=== PATIENT | female | born 1980 | race Hispanic/Latino ===

== ENCOUNTER 2020-11-16 15:27 | Emergency (ER) | payer OTHER ==
--- OUTSIDE RECORDS SUMMARY | 2020-11-16 15:32 | XMS REPORT | Continuity of Care Document ---
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 Rickey VIDAL [facility] Obstetrics [id number] Univers 14:00:00 14:00:00 t; ANUSHA and catracho VIDAL M.D. Gynecology Dante s Noni TAVARES M.D. Clinic ans 2020-04-29 2020-04-29 [facility] [id number] Univers 13:15:00 13:15:00 t; catracho TAVARES M.D. [place] Tom TAVRAES M.D. ans 2020-04-21 2020-04-21 [facility] Endocrinolo [id number] Univers 08:40:00 08:40:00 t; PAT [facility] i ty of [facility] Physic i [facility] ans 2020-04-05 2020-04-05 Appointradha MILLER [facility] Rheumatolog [id number] Univers 08:00:00 08:00:00 t; KANA MILLER M.D. y i ty of Liza ROGER [place] Physici ans 2020 [address] [facility] Minimally [id number] Univers 13:00:00 13:00:00 t; JD CALVIN Invasive ity of CURTIS, M.D. Surgeons of Dante hood M.D. [place] Physici ([facility]) ans 2020 2020 [facility] [id number] Univers 09:00:00 09:00:00 t; JD CALVIN ity o f CURTIS, M.D. [place] M.D. Physici ans 2020-02-29 2020-02-29 [facility] IRAM [facility] Multispecia [id number] Univers 15:00:00 15:00:00 t; JOCELYN WALDEN lty - it y of LAVANYA, M.D. [place] M.D. Physici ans 2020-01-29 2020-01-29 [facility] [id number] Univers 14:00:00 14:00:00 t; NURSE hayden of [place], [place] NURSE Physici ans 2020-01-21 2020-01-21 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 [facility] Women's [id number] Univers 10:00:00 10:00:00 t; COMFORT, Center - ity of Liza VIDAL [facility] COMFORT Physici Liza ans 2019-12-29 2019-12-29 Appointmen MARIXA [facility] [id number] Univers 14:00:00 14:00:00 t; JD CALVIN ity o janelle MILES M.D. [place] Liza Physici ans 2019-12-29 2019-12-29 Appointmen MARIXA [facility] [id number] Univers 10:30:00 10:30:00 t; JD CALVIN, Invasive ity of Liza MILES [facility] Liza [place] Physici ([facility]) ans 2019-12-14 2019-12-14 Appointmen C[facility]CHAN [facility] [id number] Univers 09:15:00 09:15:00 t; ANTONY SABA M.D. ity of Jayne HARDY M.D. Physici ans 2019-12-10 2019-12-10 Emergency E MHBL MHBL [id number] MHBL 18:31:00 18:31:00 2019-12-10 2019-12-[address] 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 2019-12-04 2019-12-04 Emergency Drever, [facility] [id number] 10:09:57 12:14:00 Madhuri Crawfodr 350.1.13.10 [place] 4.2.7.2.686 [place] [id number] 2019-12-04 2019-12-04 Orders Doctor SYLVIA [id number] 00:00:00 00:00:00 Only Unassigned, NOA 350.1.13.[address]2.686 [id number] 2019-11-27 2019-11-27 Outpatient MHBL MHBL [id number] MHBL 10:54:00 10:54:00 2019-11-12 2019-11-13 Emergency Aliza, [facility] [id number] 21:40:46 01:33:00 Delon Crawford 350.1.13.[address]7.2.686 [place] [id number] [id number] 2019-11-12 2019-11-12 Orders Doctor WARD [id number] 00:00:00 00:00:00 Only Unassigned, NOA 350.1.13.[address]2.686 [id number] [id number] 2019-11-11 2019-11-11 Emergency E MHBL MHBL [id number] MHBL 15:43:00 15:43:00 2019-09-14 2019-09-14 Emergency E MHBL MHBL [id number] MHBL 15:17:00 15:17:00 2019-05-07 2019-05-07 Outpatient MHBL MINAL [id number] MHBL 05:39:00 05:39:00 2013-11-17 2013-11-17 Outpatient Gutierrez Christenseni [facility] [id number] 18:07:00 23:59:00 [facility] 2013-11-17 2013-11-17 Outpatient Fermin Linda [facility] [id number] 18:07:00 23:59:00 [facility] 2013-10-09 2013-10-09 Outpatient 3 3 [id number] 15:16:22 15:16:21 2013-10-09 2013-10-09 Outpatient 3 3 [id number] 15:16:22 15:16:21 Results Test Description Test Time Test Comments Results Result Comments Source [Q] HEPATITIS PANEL, ACUTE W/REFLEX 2020-05-04 07:27:00 Test Item Value Reference Range Interpretation Comme nts HEPATITIS NON-REACTIVE NON-REACTIVE N For additional information, please refer to A IGM http://educatio n.WeGush.im3D/faq/PSF994 (test code (This link is b eing provided for = informational/e ducational purposes only.) HEPATITIS A IGM) HEPATITIS NON-REACTIVE NON-REACTIVE N B SURFACE ANTIGEN; Normal (test code = 5195-3) HEPATITIS NON-REACTIVE NON-REACTIVE N B CORE ANTIBODY (IGM); Normal (test code = 93097-8) HEPATITIS NON-REACTIVE NON-REACTIVE N C ANTIBODY; Normal (test code = 96160-1) SIGNAL TO 0.02 <1.00 N HCV antibody wa s non-reactive. There is no CUT-OFF laboratory evid ence of HCV infection. In most (test code cases, no furth er action is required. However,if = SIGNAL recent HCV expo sure is suspected, a test for HCV TO RNA(test code 3 5645) is suggested. For additional CUT-OFF) information ple ase refer tohttp://educat ion.WeGush.im3D/faq/FAQ22 v1(This link is being provided for informational/e ducational purposes only.) [facility][QL] CMP [id number] 07:27:00 Test Item Value Reference Range Interpretation Comments GLUCOSE; Above 294 mg/dl 65-99 Fasting refer ence High Threshold interval For (test code = someone without 1547-9) known diabetes, a glucosevalue >1 25 mg/dL indicates that they may havediabetes an d this should be confirmed with afollow-up test . UREA NITROGEN 9 mg/dl 7-25 N (BUN) (test code = UREA NITROGEN (BUN)) CREATININE (test 0.77 mg/dl 0.50-1.10 N code = CREATININE) eGFR NON-AFR. 97 {ML/MIN/1.7} > OR = 60 N ISRAELI (test code = eGFR NON-AFR. ISRAELI) eGFR 113 {ML/MIN/1.7} > OR = 60 N ISRAELI (test code = eGFR ) BUN/CREATININE NOT APPLICABLE 6-22 RATIO (test code = BUN/CREATININE RATIO) SODIUM (test code 137 mmol/L 135-146 N = SODIUM) POTASSIUM (test 4.6 mmol/L 3.5-5.3 N code = POTASSIUM) CHLORIDE (test 99 mmol/L 98-110 N code = CHLORIDE) CARBON DIOXIDE 26 mmol/L 20-32 N (test code = CARBON DIOXIDE) CALCIUM (test code 9.9 mg/dl 8.6-10.2 N = CALCIUM) PROTEIN, TOTAL 7.4 g/dl 6.1-8.1 N (test code = PROTEIN, TOTAL) ALBUMIN (test code 4.1 g/dl 3.6-5.1 N = ALBUMIN) GLOBULIN (test 3.3 {G/DL CALC} 1.9-3.7 N code = GLOBULIN) ALBUMIN/GLOBULIN 1.2 {CALC} 1.0-2.5 N RATIO (test code = ALBUMIN/GLOBULIN RATIO) BILIRUBIN, TOTAL; 0.4 mg/dl 0.2-1.2 N Normal (test code = 80627-8) ALKALINE 178 u/l 31-125 PHOSPHATASE (test code = ALKALINE PHOSPHATASE) AST; Above High 45 u/l 10-30 Threshold (test code = 1916-6) ALT; Above High 49 u/l 6-29 Threshold (test code = 1742-6) [facility][QL] SED RATE BY MODIFIED [id number] 07:27:00 Test Item Value Reference Range Interpretation Comments SED RATE BY TNP TEST NOT PERFOR MED Please be MODIFIED ALISON advised that we receivedyour (test code = SED order for t est code 809 - RATE BY MODIFIED ESR,Automat ed. Due to ALISON) insufficientspe cimen volume the automated E SRwas not performed. The test code waschanged to 2 9891 and a manual ESRwas p erformed. Billing has bee nchanged as appropriate. Pl easecontact us with any questi ons. [facility][QL] CBC (INCLUDES DIFF/PLT)2020-05-04 07:27:00 Test Item Value Reference Range Interpretation Comments WHITE BLOOD CELL COUNT 10.2 {Thousand/u} 3.8-10.8 N (test code = WHITE BLOOD CELL COUNT) RED BLOOD CELL COUNT (test 5.44 {Million/uL} 3.80-5.10 code = RED BLOOD CELL COUNT) HEMOGLOBIN; Normal (test 15.0 g/dl 11.7-15.5 N code = 10945-6) HEMATOCRIT; Above High 46.5 % 35.0-45.0 Threshold (test code = 4544-3) MCV; Normal (test code = 85.5 fL 80.0-100.0 N 787-2) MCHC; Normal (test code = 32.3 g/dl 32.0-36.0 N 21529-3) RDW; Normal (test code = 13.7 % 11.0-15.0 N 788-0) PLATELET COUNT; Normal 366 {Thousand/u} 140-400 N (test code = 777-3) MPV; Normal (test code = 10.9 fL 7.5-12.5 N 75523-4) ABSOLUTE NEUTROPHILS (test 4570 {cells/uL} 9294-2908 N code = ABSOLUTE NEUTROPHILS) ABSOLUTE LYMPHOCYTES (test 4927 {cells/uL} 850-3900 code = ABSOLUTE LYMPHOCYTES) ABSOLUTE MONOCYTES (test 428 {cells/uL} 200-950 N code = ABSOLUTE MONOCYTES) ABSOLUTE EOSINOPHILS (test 214 {cells/uL} 15-500 N code = ABSOLUTE EOSINOPHILS) ABSOLUTE BASOPHILS (test 61 {cells/uL} 0-200 N code = ABSOLUTE BASOPHILS) NEUTROPHILS (test code = 44.8 % N NEUTROPHILS) LYMPHOCYTES (test code = 48.3 % N LYMPHOCYTES) MONOCYTES; Normal (test 4.2 % N code = 30976-6) EOSINOPHILS; Normal (test 2.1 % N code = 17219-6) BASOPHILS; Normal (test 0.6 % N code = 67128-7) [facility][Q] SED RATE BY MODIFIED WESTERGREN, MANUAL 2020-05-04 07:27:00 Test Item Value Reference Range Interpretation Comments SED RATE BY MODIFIED WESTERGREN, 35 mm/h < OR = 20 MANUAL (test code = SED RATE BY MODIFIED WESTERGREN, MANUAL) [facility][QL] C-REACTIVE [id number] 07:27:00 Test Item Value Reference Range Interpretation Comments C-REACTIVE PROTEIN (test code = 31.3 mg/L <8.0 C-REACTIVE PROTEIN) [facility][Q] QUANTIFERON( R)-TB GOLD PLUS, 1 [id number] 07:27:00 Test Item Value Reference Range Interpretation Comments QUANTIFERON( NEGATIVE NEGATIVE N Negative test r esult. M. R)-TB GOLD tuberculosis co mplex PLUS, 1 TUBE infection unlik jazlyn. (test code = QUANTIFERON( R)-TB GOLD PLUS, 1 TUBE) NIL (test code 0.07 {IU/ml} N = NIL) MITOGEN-NIL >10.00 N (test code = MITOGEN-NIL) TB1-NIL (test 0.00 {IU/ml} N code = TB1-NIL) TB2-NIL (test 0.01 {IU/ml} N The Nil tube v alue reflects code = the background TB2-NIL) interferongamma immune response of the patient's blood sample.Th is value has been subtracted from the patient'sdispla yed TB and Mitogen results . Lower than expected result s with the Mitogen tubepre vent false-negative Quantiferon readings bydete cting a patient with a potential immunesuppressi ve condition and/or suboptim al pre-analyticals pecimen handling. The T B1 Antigen tube is coated with theM. tuberculosis-sp ecific antigens design ed to elicitresponses from TB antigen primed CD4+ helperT-lymphoc ytes. The TB2 Antigen tub e is coated with theM. tuberculosis-sp ecific antigens design ed to elicitresponses from TB antigen primed CD4+ helper and CD8+cytotox ic T-lymphocytes. For additional info rmation, please refer tohttps://educa tion.Vivint.im3D/f aq/VCL242(Th is link is joseph zhao provided for informational/e ducational purposes only.) [facility] Abdomen RUQ [id number] 10:16:00PROCEDURE INFORMATION:Exam: US Abdomen, Limited; Right Upper QuadrantExam date and time: 04/12/2020 10:23 AMAge: 40 years oldClinical indication: Nonspecific elevation of levels of transaminase and lacticacid dehydrogenase (ldh); Additional info: /transaminitisTECHNIQUE:Imaging protocol: US abdomen. Real time ultrasound with image documentation.Limited exam focused on the right upper quadrant.COMPARISO N:ABDOMEN RUQ US 08/06/2017 1:35 PMFINDINGS:Liver: The liver demonstrates minimal increased echogenicity suggesting fattyinfiltration. No masses. The main portal vein appears patent and demonstrateshepatopetal flow.Gallbladder: Previous cholecystectomy.Common bile duct: The common bile duct is slightly dilated and measures 7 mm.No stones.Pancreas: The visualized pancreas is unremarkable.Right kidney:The right kidney measures 13.6 cm. No mass. No hydronephrosis.IMPRESSION:1. Minimal fatty infiltration of the liver.2. 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 No joint spacenarrowing, osteophyte formation or cysts.No soft tissue abnormality is identified.IMPRESSION: Normal exam of the bilateral feet.--This report was dictated by a Barrel Finisher/Fellow/Physician Education Officer. Ihave personallyreviewed the images as well as the interpretation and agree with the findings.Read by: Haja Argueta MD Resident/Fellow/PhysicianAssistant: Haja Argueta MDDictated Date/time: 04/05/20 11:29Electronically Signed by: Chet Gee MD 04/05/2011:53FINAL REPORTUnBear [facility] PhysiciansXRAY Hand AP lateral oblique Bilateral [id number] 10:10:00EXAM: XR BILATERAL HAND 4 VIEWSDATE: 04/05/2020 10:11 CDTINDICATION: - M25.50 Pain in unspecified jointCOMPARISON: None.TECHNIQUE: PA, [place], lateral and oblique radiographs of the bilateralhands.FINDINGS:No acute fracture or malalignment is identified. No osseous erosions or cysts.Joint spaces and bone mineral density are preserved.No soft tissue abnormality is identified.IMPRESSION: Normal exam of the bilateral hands.--This report was dictated by a Barrel Finisher/Fellow/Physician Education Officer. Jose personallyreviewed the images as well as the interpretation and agree with the findings.Read by: Haja Argueta MD Resident/Fellow/PhysicianAssistant: Haja Argueta MDDictated Date/time: 04/05/20 11:34Electronically Signed by: Chet Gee MD 04/05/2011:55FINAL REPORTUnBear River [facility][QL] JODY PANEL, [id number] 09:10:00 Test Item Value Reference Range Interpretation Comments JODY SCREEN, IFA NEGATIVE NEGATIVE N JODY IFA is a first line (test code = JODY screen for detecting SCREEN, IFA) thepresence of up to approximately 1 50 autoantibodies invarious autoimmune dise ases. A negative JODY IF A resultsuggests an JODY-associated autoimmune disease is notp resent at this time, but is not definitive. If thereis high clinical suspic ion for Sjogren's syndr ome,testing for anti-SS-A/R o antibody should be considered.Anti -Rachel-1 antibody should be considered for clinicallysuspe cted inflammatory my opathies. AC-0: Negative International Consensus on AN A Patterns(https: //doi.org/10. 1515/cclm-2018- 0052) For additional info rmation, please refer tohttp://educat ion.Garpun.im3D/faq /NQQ857(This link is being p rovided for informational/e ducational purposes only.) DNA (DS) ANTIBODY <1 N IU/mL Interpretation (test code = DNA < or (DS) ANTIBODY) = 4 Negati ve 5- 9 Indeterminate > or = 10 Positive SCL-70 ANTIBODY <1.0 NEG <1.0 NEG N (test code = SCL-70 ANTIBODY) SM ANTIBODY (test <1.0 NEG <1.0 NEG N code = SM ANTIBODY) SM/ANIMAL PATHOLOGY TEACHER ANTIBODY <1.0 NEG <1.0 NEG N (test code = SM/ANIMAL PATHOLOGY TEACHER ANTIBODY) SJOGRENS ANTIBODY <1.0 NEG <1.0 NEG N (SS-A) (test code = SJOGRENS ANTIBODY (SS-A)) SJOGRENS ANTIBODY <1.0 NEG <1.0 NEG N (SS-B) (test code = SJOGRENS ANTIBODY (SS-B)) [facility][QL] CREATINE KINASE, [id number] 09:10:00 Test Item Value Reference Range Interpretation Comments CREATINE KINASE, TOTAL (test code = 91 u/l 29-143 N CREATINE KINASE, TOTAL) [facility][QL] URINALYSIS, COMPLETE W/REFLEX TO CULTURE 2020-04-05 09:10:00 Test Item Value Reference Range Interpretation Comments COLOR; Normal (test code = YELLOW YELLOW N 5778-6) APPEARANCE (test code = CLOUDY CLEAR A APPEARANCE) SPECIFIC GRAVITY; Normal 1.017 1.001-1.035 N (test code = 2965-2) PH; Normal (test code = < OR = 5.0 5.0-8.0 N 2756-5) GLUCOSE; Normal (test code NEGATIVE NEGATIVE N = 1547-9) BILIRUBIN; Normal (test NEGATIVE NEGATIVE N code = 10203-8) KETONES; Normal (test code NEGATIVE NEGATIVE N = 09915-5) OCCULT BLOOD; Normal (test NEGATIVE NEGATIVE N code = 72600-9) PROTEIN; Normal (test code NEGATIVE NEGATIVE N = 73575-0) NITRITE (test code = NEGATIVE NEGATIVE N NITRITE) LEUKOCYTE ESTERASE (test 1+ NEGATIVE A code = LEUKOCYTE ESTERASE) WBC; Abnormal (test code = 10-20 < OR = 5 A 6690-2) RBC; Normal (test code = NONE SEEN < OR = 2 N 789-8) SQUAMOUS EPITHELIAL CELLS; 20-27 < OR = 5 A Abnormal (test code = 85810-9) BACTERIA; Abnormal (test FEW NONE SEEN A code = 630-4) URIC ACID CRYSTALS; Normal FEW NONE OR FEW N (test code = 64334-1) HYALINE CAST; Abnormal 0-5 NONE SEEN A (test code = 09433-7) YEAST; Abnormal (test code FEW NONE SEEN A = 43805-7) COMMENTS (test code = FEW MUCOUS THREADS 33126-6) [facility][Q] CYCLIC CITRULLINATED PEPTIDE (CCP) AB (IGG) 2020-04-05 09:10:00 Test Item Value Reference Range Interpretation Comments CYCLIC CITRULLINATED <16 N Referen ce PEPTIDE (CCP) AB (IGG) Range Negative: (test code = CYCLIC <20We ak Positive: CITRULLINATED PEPTIDE 20 -39Moderate (CCP) AB (IGG)) Positive: 40-59Strong Pos itive: >59 [facility][Q] REFLEXIVE URINE [id number] 09:10:00 Test Item Value Reference Range Interpretation Comments REFLEXIVE URINE CULTURE CULTURE INDICATED - (test code = REFLEXIVE RESULTS TO FOLLOW URINE CULTURE) [facility][QL] CULTURE, URINE, [id number] 09:10:00 Test Item Value Reference Range Interpretation Comments CULTURE (test code See Comment A CULTURE, URINE, ROUTINE = CULTURE) Micro Number : [id number] Test Status: Final Spec imen Source: URINE Specimen Qualit y: Adequate Resul t: 10,000-50,0 00 CFU/mL of Group B Stre ptococcus isolated Beta-hemoly tic Streptococci ar e predictably suscepti ble to penicillin and other beta-lactams. Suscep tibility testing not rou tinely performed. Any amoun t of group B Strepto coccus in urine specimens obta ined from female s is a marker of genital trac t colonization. I f this patient is , pl ease refer to ACOG guidel lory for appropriate scr eening and management of p regnant women. Comment : Erythromycin and clindamycin are not recommended for lala tment of urinary tract infections, but clin damycin may be useful f or treatment of rectova ginal colonization or infection. Res ult: Three or more organisms prese nt, each greater than 10,000 CFU/mL. May represent n ormal rita contamination from external genita beata. No further testing is r equired. [facility][QL] CORTISOL, [id number] 08:10:00 Test Item Value Reference Range Interpretation Comments CORTISOL, TOTAL 0.8 {mcg/dl} Reference Ra nge: For 8 (test code = a.m.(7-9 a.m.) CORTISOL, TOTAL) Specimen: 4.0-22.0Referen ce Range: For 4 p. m.(3-5 p.m.) Specimen: 3.0-17.0 * Ple ase interpret above results accordingly * [facility][QL] CORTISOL, [id number] 08:42:00 Test Item Value Reference Range Interpretation Comments CORTISOL, TOTAL 15.6 {mcg/dl} N Reference R marko: For 8 (test code = a.m.(7-9 a.m.) CORTISOL, TOTAL) Specimen: 4.0-22.0Referen ce Range: For 4 p. m.(3-5 p.m.) Specimen: 3.0-17.0 * Ple ase interpret above results accordingly * [facility][QL] FSH AND [id number] 08:42:00 Test Item Value Reference Range Interpretation Comments FSH (test code 6.9 {miU/ml} N Reference Ran ge = FSH) Follicu lar Phase 2.5-10.2 Mid-cycle Peak 3.1-17.7 Luteal Phase 1.5- 9.1 Postmenopausal 23.0-116.3 LH (test code = 0.6 {miU/ml} N Reference Ra ngeFollicular LH) Phase 1.9-12.5 Mid-Cycle Peak 8.7-76. 3Luteal Phase 0.5-16.9Postmen opausal 10.0-54.7 [facility][QL] ACTH, [id number] 08:42:00 Test Item Value Reference Range Interpretation Comments ACTH, PLASMA (test 17 pg/ml 6-50 Reference range applies code = ACTH, only to the [facility] PLASMA) collectedbetwee n 7am-10am. [facility][Q] IGF I, [id number] 08:42:00 Test Item Value Reference Range Interpretation Comments IGF I, ECL 69 ng/ml 53-331 (test code = IGF I, ECL) Z SCORE -1.5 {SD} -2.0-+2.0 This test was d eveloped and its (FEMALE) analytical (test code = performancechar acteristics have Z SCORE been determined by [facility] (FEMALE)) [facility] . It has not beencleared or approved by FDA. This assay has been validatedpursua nt to the CLIA regulations and is used for clinicalpurpose s. [facility][Q] PLASMA RENIN ACTIVITY,[id number] 08:42:00 Test Item Value Reference Range Interpretation Comments PLASMA RENIN 2.33 0.25-5.82 This test was d eveloped and its ACTIVITY,LC/ ng/mL/h analytical MS/MS (test performancechar acteristics have code = been determined by [facility] PLASMA RENIN DiagnosticsR [facility] Stock [facility]/ Miguel Russell . It has not MS/MS) beencleared or approved by FDA. This assay has been validatedpursua nt to the CLIA regulations and is used for clinicalpurpose s. [facility][QL] METANEPHRINES, FRACT, LC/MS/MS, PLASMA 2020-03-02 08:42:00 Test Item Value Reference Interpretation Comments Range METANEPHRINE (test <25 < OR = 57 This test was developed and code = its analytical METANEPHRINE) performancecha racteristics have been deter mined by [facility]. It has not beencleared or approved by FDA. This as say has been validatedpursua nt to the CLIA regulations and is used for clinicalpurpose s. NORMETANEPHRINE 74 pg/ml < OR = 148 This test wa s developed and (test code = its analytical NORMETANEPHRINE) performance characteristics have been deter mined by [facility] [place]. It has not beencleared or approved by FDA. This as say has been validatedpursua nt to the CLIA regulations and is used for clinicalpurpose s. TOTAL METANEPHRINE 74 pg/ml < OR = 205 Elevation s > 4-fold upper (test code = TOTAL reference range: METANEPHRINE) stronglysugges tive of a pheochromocytom a(1). Elevations >1 - 4-foldupper reference range : significant but not diagnos tic, maybe due to medications or stress. Suggest running 24 hr urinefractionat ed metanephrines a nd serum Chromogranin A forconfirmation . Reference: (1) Alethea-S radha Lovell et petrona, Plasma Flight Instructor mogranin A orUrine Fractio nated Metanephrines F ollow-Up Testing Improve sthe Diagnostic Accu racy of Plasma Fractionated Me tanephrinesfor Pheochromocytom a. The Journal of Clinical End ocrinologyand Metabolism 93 ( 1),91-95, 2008. For addit ional information, pl ease refer tohttp://educat ion.Oohly.im3D/faq/ MetFractFree(T his link is heladio messer provided for informational/e ducationalpurp oses only.) Thi s test was developed and i ts analytical performancechar acteristics have been deter mined by [facility]. It has not beencleared or approved by FDA. This as say has been validatedpursua nt to the CLIA regulations and is used for clinicalpurpose s. [facility][QL] ALDOSTERONE, [id number] 08:42:00 Test Item Value Reference Range Interpretation Comments ALDOSTERONE, 5 ng/dl Adult Reference Ranges for LC/MS/MS Aldosterone: Upright 8:00-10:00 (test code = am < or = 28 ng/dL Upright ALDOSTERONE, 4:00-6:00 pm < or = 21 ng/dL LC/MS/MS) Supine 8:00-10 :00 am 3-16 ng/dL This test was developed and its analytical performancechar acteristics have been determined by [facility] . It has not beencleared or approved by FDA. This assay has been validatedpursua nt to the CLIA regulations and is used for clinicalpurpose s. [facility][QL] GROWTH HORMONE (GH)2020-03-02 08:42:00 Test Item Value Reference Range Interpretation Comments GROWTH HORMONE (GH) 0.1 ng/ml < OR = 7.1 N Because of a pulsatile (test code = GROWTH secretio n pattern, HORMONE (GH)) random(unstimu lated) growth hormone (GH) levels are freq uently undetectable in normal children and ad ultsand are not reliabl e for diagnosing GH deficiency.Rega rding suppression thompson ts, failure to supp ress GHis diagnostic of acromegaly. Typ ical GH response in hea lthy subjects: Usin g the glucose toleran ce (GH suppression) te st, acromegaly is r uled out if the patient' s GH level is <1.0 ng/mL at any point in th e timed sequence. [Aurora Sumner, Nasim Meza ER, Maral S, et al. Acromeg tommy: an Endocrine Socie ty Clinical Practi ce Guideline. J Cl in Endocrinol [place] b 2014; 99: 3933- 3951 ]. Using GH stimulation testing, the following r esult at any point in th e timed sequence makes GH deficiency unli nanda: Adults (> or = 20 years): In sulin Hypoglycemia > or = 5.1 ng/mL Argi nine/GHRH > or = 4.1 ng/mL Glucagon > or = 3.0 ng /mL Children (< 20 years): All Stimulat ion Tests > or = 10.0 ng/ mL [facility][QL] [id number] 08:42:00 Test Item Value Reference Range Interpretation Comments PROLACTIN (test code 7.0 ng/ml N Referen ce Range Females = PROLACTIN) Non-pregn ant 3.0-30.0 10.0-209.0 Postmenopausal 2.0-20.0 [facility][QL] CATECHOLAMINES, FRACTIONATED, PLASMA 2020-03-02 08:42:00 Test Item Value Reference Interpretation Comments Range EPINEPHRINE (test <20 This test was developed and code = its analytical EPINEPHRINE) performancechar acteristics have been deter mined by [facility]. It has not beencleared or approved by FDA. This assay has been validatedpursua nt to the CLIA regulations and is used for clinicalpurpose s. NOREPINEPHRINE 716 pg/ml This test was developed and (test code = its analytical NOREPINEPHRINE) performancec haracteristics have been deter mined by [facility]. It has not beencleared or approved by FDA. This assay has been validatedpursua nt to the CLIA regulations and is used for clinicalpurpose s. DOPAMINE (test <10 This test was developed and code = DOPAMINE) its analyti stalin performancechar acteristics have been deter mined by [facility] [place] [facility]. It has not beencleared or approved by FDA. This assay has been validatedpursua nt to the CLIA regulations and is used for clinicalpurpose s. TOTAL 716 pg/ml Adult Reference Ranges for CATECHOLAMINES Catecholamine s, Plasma (test code = TOTAL Epinephri ne Supine: CATECHOLAMINES) <50 pg/mL Upright: <95 pg /mL Norepinephrine Supine: 112-658 pg/mL Upright: 21 7-1109 pg/mL Dopamine Supine: <10 pg/mL Upright: <20 pg/mL Total (N+E+D) Supine: 123-671 pg/mL Upright: 24 2-1125 pg/mL Pediatric Refer ence Ranges for Catecholamines, Plasma Due to stress, plasma catecholamine levels are gene rallyunreliable in infants and small children. Urinarycatechol amine assays are more reliab le. Epinephrine 3-15 Years Supine: < or = 464 pg/m L Upright: No Reference Range Available Norepinephrine 3-15 Years Supine: < or = 1251 pg/ mL Upright : No Reference Range Available Dopamine 3-15 Years Supine: <60 pg/mL Upright: No Ref erence Range Available Pedia tric data from J [employer] (5 [phone]) 661:[phone]. Th is test was developed and i ts analytical performancechar acteristics have been deter mined by [facility]. It has not beencleared or approved by FDA. This assay has been validatedpursua nt to the CLIA regulations and is used for clinicalpurpose s. [facility] Thyroid [id number] 12:31:00EXAM: US THYROIDDATE: 03/01/2020 12:26 PM CDTINDICATION: - familial adenomatous polyposis coliADDITIONAL INFORMATION: None.COMPARISON: None.TECHNIQUE: Multiplanar grayscale and color Doppler ultrasound of the neck wereobtained in the area of the thyroid.FINDINGS:Thyroid parenchyma: Normal.Size:Right thyroid: 3.8 x 1.7 x 1.5 cmLeft thyroid: 3.7 x 1.6 x 1.6 cmIsthmus thickness: 0.35 cmThyroid nodules: Within the superolateral aspect of the left thyroid lobe,there is a solid hypoechoic smoothly marginated 0.8 x 0.4 x 0.4 cm nodule withno abnormal internal hyperechoic foci. TI RADS points: 4, TR 4.Cervical lymph nodes: Normal.IMPRESSION:1. Single 8 mm nodule in the right thyroid lobe which is not meetcriteria forfine-needle aspiration at this time.2. No other nodules identified.REFERENCE:Sudheer FN, Kenisha WD, Da EG, et al. ACR Thyroid Imaging, Reporting andData System (TI-RADS): White Paperof the ACR TI-RADS Committee. J Am CollRadiol. 2017; 14(5): 587-595.--Read by: Aaron Duff MDDictated Date/time: 03/01/20 14:07Electronically Signed by: Aaron Duff MD 03/01/2014:13FINAL REPORTUnBear [facility][O] Hemoglobin A1c (in office)2020-02-29 16:51:00 Test Item Value Reference Range Interpretation Comments HEMOGLOBIN A1c; Abnormal (test code = 10.3 A 4548-4) [facility]. [facility] - [id number] 00:00:00 Test Item Value Reference Range Interpretation Comments Case (test code = Click ImageLink button N Case) for report. [facility][O] Hemoglobin A1c (in office)2019-12-10 13:10:00 Test Item Value Reference Range Interpretation Comments HEMOGLOBIN A1c; Above High Threshold 11.1 (test code = 4548-4) [facility]ucose ([facility] In [facility])2019-12-10 13:10:00 Test Item Value Reference Range Interpretation Comments Glucose POC Lifescan (test code = 164 Glucose POC Lifescan) [facility][QLH] CBC (INCLUDES DIFF/PLT)2019-12-10 10:48:01 Test Item Value Reference Range Interpretation Comments WBC; Above High Threshold (test 13.8 {K/CMM} 3.7-10.4 code = 6690-2) RBC (test code = 789-8) 4.73 {M/CMM} 4.20-5.40 Hgb (test code = 718-7) 14.2 g/dl 12.0-16.0 Hct (test code = 72715-8) 42.2 % 36.0-48.0 MCV (test code = 787-2) 89.2 fL 80.0-98.0 MCH (test code = 785-6) 30.0 pg 27.0-31.0 MCHC (test code = 786-4) 33.6 g/dl 32.0-36.0 RDW (test code = 788-0) 13.0 % 11.5-14.5 Platelet (test code = 64089-3) 338 {K/CMM} 133-450 Mean Platelet Volume (test code 8.8 fL 7.4-10.4 = 90751-6) [facility]] [id number] 10:48:01 Test Item Value Reference Range Interpretation Comments Segmented Neutrophils (test code 61.1 % 45.0-75.0 = 41500-8) Monocytes (test code = 33970-2) 4.9 % 2.0-12.0 Lymphocytes (test code = 09769-3) 32.1 % 20.0-40.0 Eosinophils (test code = 29999-7) 1.4 % 0.0-4.0 Basophils (test code = 706-2) 0.5 % 0.0-1.0 Segs-Bands #; Above High 8.4 {K/CMM} 1.5-8.1 Threshold (test code = 21498-1) Lymphocytes # (test code = 4.4 {K/CMM} 1.0-5.5 38908-5) Monocytes # (test code = 30411-2) 0.7 {K/CMM} 0.0-0.8 Eosinophils # (test code = 0.2 {K/CMM} 0.0-0.5 80421-6) Basophils # (test code = 39211-5) 0.1 {K/CMM} 0.0-0.2 [facility]] CMP [id number] 10:48:01 Test Item Value Reference Range Interpretation Comments Sodium Level 140 {mEq/l} 135-145 (test code = 2951-2) Potassium Level 3.9 {mEq/l} 3.5-5.1 (test code = 2823-3) Chloride Level 106 {mEq/l} 95-109 (test code = 2075-0) Carbon Dioxide 24 {mEq/l} 24-32 (test code = 8-9) AGAP (test code = 13.9 {mEq/l} 10.0-20.0 23450-1) Glucose Lvl; 135 mg/dl 70-99 Adult reference range Above High values reflect the Threshold (test clinical vidal delinesof the code = 2345-7) [employer]. Creatinine Lvl 0.60 mg/dl 0.50-1.40 (test code = 2160-0) Blood Urea 10 mg/dl 7-22 Nitrogen (test code = 3094-0) BUN/Creatinine 17 6-25 Ratio (test code = 3097-3) Total Protein 7.6 g/dl 6.4-8.4 (test code = 2885-2) Albumin Lvl; 3.4 g/dl 3.5-5.0 Below Low Threshold (test code = 1751-7) Globulin (test 4.2 g/dl 2.7-4.2 code = 96856-9) A/G Ratio (test 0.8 0.7-1.6 code = 1759-0) Calcium Level 9.1 mg/dl 8.5-10.5 Total (test code = 35936-1) ALT; Above High 76 u/l 0-65 Threshold (test code = 1743-4) AST; Above High 66 u/l 0-37 Threshold (test code = 42206-5) Bili Total (test 0.4 mg/dl 0.2-1.3 code = 1974-2) Alk Phos; Above 138 u/l 39-136 The pediatri c reference High Threshold ranges for th is test (test code = represent a 1783-0) CLSI-basedtrans ference of the CALIPER sandi abase of pediatric refer ence intervals to eSiemens Mcgee analyzer (Clinical Biochemistry 46 (2013): 8221-7882). [facility] has not internally validated these reference ranges and therefore they should be used only in th e context of a thoroughcl inical assessment. eGFR (test code = 116 The eGFR i s calculated 01721-6) {ML/MIN/1.7} using the CKD-E PI formula. In mos t young, healthyindividu als the eGFR will be >9 0 mL/min/1.73m2. The eGFR declines with a ge. AneGFR of 60-89 may be normal in some population s, particularly th e elderly, forwhom the CKD -EPI formula has not been extensively saturnino idated. Use of the eGFR isnot recommended in the following populations:Ind ividuals with unstable c reatinine concentrations, including patient s and those with seri ous co-morbid conditions.Addie ents with extremes in mus sergio mass or diet.The sandi a above are obtained fr om the National Kidney Disease Education Progr am(NKDEP) which sarah esparza recommends that when the eGFR is used in patientswith ex tremes of body mass index for purposes of lyle g dosing, the eGFR should be multiplied by t he estimated BMI. [facility]] LIPID [id number] 10:48:01 Test Item Value Reference Range Interpretation Comments Chol (test code = 2093-3) 175 mg/dl <=199 Trig (test code = 2571-8) 136 mg/dl <=149 HDL Cholesterol; Below Low 35 mg/dl >=61 Threshold (test code = 2085-9) CHD Risk (test code = 25793-7) 5.00 3.90-5.80 LDL; Above High Threshold (test 113 mg/dl <=99 code = 23698-1) VLDL (test code = VLDL) 27 [facility]] T4, [id number] 10:48:01 Test Item Value Reference Range Interpretation Comments T4 Free (test code = 3024-7) 1.12 ng/dl 0.76-1.46 [facility]] TSH, 3RD GENERATION W/REFLEX TO FT4 2019-12-10 10:48:01 Test Item Value Reference Range Interpretation Comments TSH (test code = 14078-5) 1.950 {uIU/ml} 0.360-3.740 [facility][] MICROALBUMIN, RANDOM URINE (W/O CREATININE) 2019-12-10 10:48:01 Test Item Value Reference Range Interpretation Comments U Alb (test code = 33.3 mg/L No establ ished reference U Alb) range. [facility][] CBC (INCLUDES DIFF/PLT)2019-12-10 10:48:01 Test Item Value Reference Range Interpretation Comments WBC; Above High Threshold (test 13.8 {K/CMM} 3.7-10.4 code = 6690-2) RBC (test code = 789-8) 4.73 {M/CMM} 4.20-5.40 Hgb (test code = 718-7) 14.2 g/dl 12.0-16.0 Hct (test code = 72957-7) 42.2 % 36.0-48.0 MCV (test code = 787-2) 89.2 fL 80.0-98.0 MCH (test code = 785-6) 30.0 pg 27.0-31.0 MCHC (test code = 786-4) 33.6 g/dl 32.0-36.0 RDW (test code = 788-0) 13.0 % 11.5-14.5 Platelet (test code = 32367-9) 338 {K/CMM} 133-450 Mean Platelet Volume (test code 8.8 fL 7.4-10.4 = 06167-2) [facility][QL] [id number] 10:48:01 Test Item Value Reference Range Interpretation Comments Segmented Neutrophils (test code 61.1 % 45.0-75.0 = 92567-8) Monocytes (test code = 68155-3) 4.9 % 2.0-12.0 Lymphocytes (test code = 67093-1) 32.1 % 20.0-40.0 Eosinophils (test code = 66310-1) 1.4 % 0.0-4.0 Basophils (test code = 706-2) 0.5 % 0.0-1.0 Segs-Bands #; Above High 8.4 {K/CMM} 1.5-8.1 Threshold (test code = 12125-6) Lymphocytes # (test code = 4.4 {K/CMM} 1.0-5.5 89730-6) Monocytes # (test code = 44006-7) 0.7 {K/CMM} 0.0-0.8 Eosinophils # (test code = 0.2 {K/CMM} 0.0-0.5 36469-0) Basophils # (test code = 85621-2) 0.1 {K/CMM} 0.0-0.2 [facility][QL] CMP [id number] 10:48:01 Test Item Value Reference Range Interpretation Comments Sodium Level 140 {mEq/l} 135-145 (test code = 2951-2) Potassium Level 3.9 {mEq/l} 3.5-5.1 (test code = 2823-3) Chloride Level 106 {mEq/l} 95-109 (test code = 2075-0) Carbon Dioxide 24 {mEq/l} 24-32 (test code = 2027-9) AGAP (test code = 13.9 {mEq/l} 10.0-20.0 69365-4) Glucose Lvl; 135 mg/dl 70-99 Adult reference range Above High values reflect the Threshold (test clinical vidal delinesof the code = 2345-7) [place] [employer] et[employer]. Creatinine Lvl 0.60 mg/dl 0.50-1.40 (test code = 2160-0) Blood Urea 10 mg/dl 7-22 Nitrogen (test code = 3094-0) BUN/Creatinine 17 6-25 Ratio (test code = 3097-3) Total Protein 7.6 g/dl 6.4-8.4 (test code = 2885-2) Albumin Lvl; 3.4 g/dl 3.5-5.0 Below Low Threshold (test code = 1751-7) Globulin (test 4.2 g/dl 2.7-4.2 code = 00716-2) A/G Ratio (test 0.8 0.7-1.6 code = 1759-0) Calcium Level 9.1 mg/dl 8.5-10.5 Total (test code = 80422-7) ALT; Above High 76 u/l 0-65 Threshold (test code = 1743-4) AST; Above High 66 u/l 0-37 Threshold (test code = 95059-9) Bili Total (test 0.4 mg/dl 0.2-1.3 code = 1975-2) Alk Phos; Above 138 u/l 39-136 The pediatri c reference High Threshold ranges for th is test (test code = represent a 1783-0) CLSI-basedtrans ference of the CALIPER sandi abase of pediatric refer ence intervals to eSiemens Mcgee analyzer (Clinical Biochemistry 46 (2013): 4423-0518). [facility] has not internally validated these reference ranges and therefore they should be used only in e context of a thoroughcl inical assessment. eGFR (test code = 116 The eGFR i s calculated 87127-3) {ML/MIN/1.7} using the CKD-E PI formula. In mos t young, healthyindividu als the eGFR will be >9 0 mL/min/1.73m2. The eGFR declines with a ge. AneGFR of 60-89 may be normal in some population s, particularly th e elderly, forwhom the CKD -EPI formula has not been extensively saturnino idated. Use of the eGFR isnot recommended in the following populations:Ind ividuals with unstable c reatinine concentrations, including patient s and those with seri ous co-morbid conditions.Addie ents with extremes in mus sergio mass or diet.The sandi a above are obtained fr om the National Kidney Disease Education Progr am(NKDEP) which sarah esparza recommends that when the eGFR is used in patientswith ex tremes of body mass index for purposes of lyle g dosing, the eGFR should be multiplied by t he estimated BMI. [facility][QL] LIPID [id number] 10:48:01 Test Item Value Reference Range Interpretation Comments Chol (test code = 2093-3) 175 mg/dl <=199 Trig (test code = 2571-8) 136 mg/dl <=149 HDL Cholesterol; Below Low 35 mg/dl >=61 Threshold (test code = 2085-9) CHD Risk (test code = 82498-1) 5.00 3.90-5.80 LDL; Above High Threshold (test 113 mg/dl <=99 code = 59913-4) VLDL (test code = VLDL) 27 [facility][QL] T4, [id number] 10:48:01 Test Item Value Reference Range Interpretation Comments T4 Free (test code = 3024-7) 1.12 ng/dl 0.76-1.46 [facility][QL] TSH, 3RD GENERATION W/REFLEX TO [id number] 10:48:01 Test Item Value Reference Range Interpretation Comments TSH (test code = 19926-9) 1.950 {uIU/ml} 0.360-3.740 [facility]
[2020-11-16 16:31] LABS: Basophils % 1.5 % (0-1.3); Hematocrit 45.8 % (36.0-45.0); Lymphocytes % 35.2 % (15.3-44.8); MPV 9.3 fL (7.6-11.3); RBC Red Blood Cell Count 5.05 M/uL (3.86-4.86)
[2020-11-16] MEDS ORDERED: NA CHLORIDE 0.9% 1,000 ML ONE ×2 (16:34→18:36)
[2020-11-16 16:39] LABS: Urine Blood TRACE (NEG); Urine Glucose 2+ (NEG); Urine Protein NEGATIVE (NEG); Urine pH 5.5 (5.0-7.0)
[2020-11-16 16:43] LABS: BUN Blood Urea Nitrogen 10 mg/dL (7-18); Bicarbonate 27 mmol/L (21-32); Potassium 4.1 mmol/L (3.5-5.1); Sodium Level 134 mmol/L (136-145)
[2020-11-16 16:44] LABS: Glucose Level 594 mg/dL (74-106)
[2020-11-16] MEDS ORDERED: INSULIN -REGULAR HUMAN 50 UNIT/0.5 ML ML ONE (17:17)
--- NOTE | 2020-11-16 17:42 | RAD REPORT ---
EXAM DESCRIPTION: CT - Stone Protocol - 11/16/2020 5:27 pm CLINICAL HISTORY: Flank pain. ABD PAIN COMPARISON: CT ABD PELVIS W CONTRAST dated 09/21/2015 TECHNIQUE: Axial images were obtained without oral or IV contrast. Lack of contrast limits solid org an and vascular assessment. The abivi-bg-htfn spans the entirety of the system partially obscuring uppermost abdomen and lung bases. Coronal reformatted images were obtained and reviewed. All CT scans are performed using dose optimization technique as appropriate and may include automated exposure control or mA/KV adjustment according to patient size. FINDINGS: The lower lung galloway are clear. A significant fatty liver pattern is present.The spleen is within normal limits. The pancreas and rig ht adrenal gland are normal.16 mm nodule involving the left adrenal gland noted likely an adenoma. No pathologic lymphadenopathy in the abdomen or pelvis. The calculi noted in the calices of both kidneys. No hydronephrosis is seen. No bowel obstruction, free air, free fluid or abscess. Normal appendix noted.Colectomy changes are no fernanda. No significant bony abnormality. IMPRESSION: Tiny nonobstructing caliceal stones bilaterally. Significant fatty liver.
--- NOTE | 2020-11-16 19:33 | EDPHYS ---
Physician Documentation [facility] Name: Becca Gomez Age: 40 yrs Sex: Female : 1980 Arrival Date: 11/16/2020 Time: 15:30 Bed 25 Private MD: ED Physician Karan Duncan HPI: 11/16 17:49 This 40 yrs old Female presents to ER via Ambulatory with complaints of Near kb Syncope, Nausea. 17:49 The patient has experienced near-syncope, felt faint. Onset: The symptoms/episode kb began/occurred yesterday. Duration: This was a single episode, that is still ongoing. Associated injury: The patient did not suffer any apparent associated injury. Associated signs and symptoms: Pertinent positives: nausea, Pertinent negatives: abdominal pain, agitation, ataxia, blurred vision, chest pain, combativeness, confusion, diaphoresis, diarrhea, dizziness, headache, lightheadedness, numbness, palpitations, seizure, shortness of breath, tingling, vertigo, vomiting, weakness. Current symptoms: Currently, the patient is not experiencing any symptoms, no decreased level of consciousness. The patient has not experienced similar symptoms in the past. The patient has not recently seen a physician. Pt reports she has had nausea and feels like she is going to pass out since yesterday. States she hasn't had any medication to manage her diabetes because she ran out during the freeze and hasn't been able to excelsior picker a refill. . 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 - Social history:: Smoking status: Patient denies any tobacco usage or history of. ROS: 19:35 Constitutional: Negative for fever, chills, and weight loss, Cardiovascular: Negative kb for chest pain, palpitations, and edema, Respiratory: Negative for shortness of breath, cough, wheezing, and pleuritic chest pain, Back: Negative for injury and pain, MS/Extremity: Negative for injury and deformity, Skin: Negative for injury, rash, and discoloration. 19:35 Abdomen/GI: Positive for nausea, Negative for abdominal pain, vomiting, diarrhea, constipation. 19:35 Neuro: Positive for near syncope. Exam: 19:34 Constitutional: This is a well developed, well nourished patient who is awake, alert, kb and in no acute distress. Head/Face: Normocephalic, atraumatic. Cardiovascular: Regular rate and rhythm with a normal S1 and S2. No gallops, murmurs, or rubs. Normal PMI, no JVD. No pulse deficits. Respiratory: Lungs have equal breath sounds bilaterally, clear to auscultation and percussion. No rales, rhonchi or wheezes noted. No increased work of breathing, no retractions or nasal flaring. Abdomen/GI: Soft, non-tender, with normal bowel sounds. No distension or tympany. No guarding or rebound. No evidence of tenderness throughout. Skin: Warm, dry with normal turgor. Normal color with no rashes, no lesions, and no evidence of cellulitis. MS/ Extremity: Pulses equal, no cyanosis. Neurovascular intact. Full, normal range of motion. 19:34 Neuro: Orientation: is normal, to person, place, time \T\ situation. Mentation: is normal, able to follow commands, Motor: is normal, moves all fours, Sensation: is normal, Gait: is steady, at a normal pace, without difficulty. Vital Signs: 15:48 BP 129 / 100; Pulse 112; Resp 16 S; Temp 97.4(TE); Pulse Ox 95% on R/A; Weight 80.74 kg ca1 (R); Height 5 ft. 4 in. (162.56 cm); Pain 0/10; 16:30 BP 138 / 86; Pulse 119; Resp 20; Pulse Ox 96% on R/A; dh4 18:13 BP 105 / 59 RA Supine (auto/reg); Pulse 87; Pulse Ox 96% on R/A; dh4 18:13 BP 103 / 71 RA Sitting (auto/reg); Pulse 106; Pulse Ox 96% on R/A; dh4 18:13 BP 90 / 65 RA Standing (auto/reg); Pulse 109; Pulse Ox 95% on R/A; dh4 18:47 BP 101 / 62; Pulse 86; Pulse Ox 97% on R/A; dh4 19:26 BP 110 / 71; Pulse 85; Resp 18; Pulse Ox 96% on R/A; zb 15:48 Body Mass Index 30.55 (80.74 kg, 162.56 cm) ca1 MDM: 15:53 Patient medically screened. kb 19:33 Data reviewed: vital signs, nurses notes. Data interpreted: Pulse oximetry: on room air kb is 96 %. Interpretation: normal. Counseling: I had a detailed discussion with the patient and/or guardian regarding: the historical points, exam findings, and any diagnostic results supporting the discharge/admit diagnosis, lab results, radiology results, the need for outpatient follow up, a family practitioner, to return to the emergency department if symptoms worsen or persist or if there are any questions or concerns that arise at home. 11/16 16:08 Order name: CBC with Diff; Complete Time: 16:37 kb 11/16 16:08 Order name: Basic Metabolic Panel; Complete Time: 16:48 kb 11/16 16:08 Order name: Acetone, Serum; Complete Time: 16:48 kb 11/16 16:09 Order name: Glucose, Ancillary Testing; Complete Time: 16:31 EDMS 11/16 16:15 Order name: Urine Dipstick--Ancillary (enter results); Complete Time: 16:40 kb 11/16 16:15 Order name: Urine --Ancillary (enter results); Complete Time: 16:40 kb 11/16 16:08 Order name: IV Start; Complete Time: 16:18 kb 11/16 16:08 Order name: EKG; Complete Time: 16:09 kb 11/16 17:15 Order name: CT Stone Protocol; Complete Time: 17:43 kb 11/16 18:11 Order name: Glucose, Ancillary Testing; Complete Time: 18:12 EDMS 11/16 19:35 Order name: Glucose, Ancillary Testing; Complete Time: 19:36 EDMS 11/16 16:08 Order name: EKG - Nurse/Tech; Complete Time: 16:33 kb 11/16 16:08 Order name: Urine Dipstick-Ancillary (obtain specimen); Complete Time: 17:47 kb 11/16 17:58 Order name: Orthostatics; Complete Time: 18:13 kb 11/16 19:18 Order name: Blood Glucose Level; Complete Time: 19:24 kb Administered Medications: 16:20 Drug: NS 0.9% 1000 ml Route: IV; Rate: 1000 ml; Site: left antecubital; zb 19:19 Follow up: Response: No adverse reaction; IV Status: Completed infusion; IV Intake: zb 1000ml 17:21 Drug: Insulin Regular Human 10 units {Co-Signature: iw (Lorene Powell RN).} Route: zb IVP; Site: left antecubital; 18:20 Follow up: Response: No adverse reaction; Blood sugar is lowered zb 18:22 Drug: NS 0.9% 1000 ml Route: IV; Rate: 1000 ml; Site: left antecubital; zb 19:42 Follow up: Response: No adverse reaction; IV Status: Completed infusion; IV Intake: zb 1000ml Point of Care Testing: Blood Glucose: 15:59 Blood Glucose: High (>450 mg/dL); ca1 Ranges: Critical Glucose Levels:Adult <50 mg/dl or >400 mg/dl <40 mg/dl or >180 mg/dl Disposition: 11/16/20 19:32 Discharged to Home. Impression: Hyperglycemia, unspecified, Volume depletion. - Condition is Stable. - Discharge Instructions: Dehydration, Adult, [id number], Hyperglycemia, [id number], Type 2 Diabetes Mellitus, Diagnosis, Adult, Byny-[id number]. - Medication Reconciliation Form, Thank You Letter, Antibiotic Education, Prescription Opioid Use form. - Follow up: Emergency Department; When: As needed; Reason: Worsening of condition. Follow up: Private Physician; When: 2 - 3 days; Reason: Recheck today's complaints, Continuance of care, Re-evaluation by your physician. Addendum: 11/21/2020 07:55 Co-signature as Attending Physician, Karan Duncan MD. r n Signatures: Dispatcher [employer] Corie Machuca, DRY CANS OPERATOR-C DRY CANS OPERATOR-Ckb Duncan, MD MD lashonda Russo Cheryl, RN RN Meenakshi Soliman RN RN zcarlos Powell RN iw Corrections: (The following items were deleted from the chart) 11/16 19:43 19:32 11/16/2020 19:32 Discharged to Home. Impression: Hyperglycemia, unspecified; zb Volume depletion. Condition is Stable. Discharge Instructions: Hyperglycemia, Zdmw-ro-Nizr, Type 2 Diabetes Mellitus, Diagnosis, Adult, [id number]-vp-[id number]. Forms are Medication Reconciliation Form, Thank You Letter, Antibiotic Education, Prescription Opioid Use. Follow up: Emergency Department; When: As needed; Reason: Worsening of condition. Follow up: Private Physician; When: 2 - 3 days; Reason: Recheck today's complaints, Continuance of care, Re-evaluation by your physician. kb
--- NOTE | 2020-11-16 19:33 | ER ---
Nurse's Notes [facility] Name: Becca Gomez Age: 40 yrs Sex: Female : 1980 Arrival Date: 11/16/2020 Time: 15:30 Bed 25 Private MD: Diagnosis: Hyperglycemia, unspecified;Volume depletion Presentation: 11/16 15:48 Chief complaint: Patient states: AM not feeling good, I feel like I am going to pass ca1 out, and am very nauseous. Started yesterday. AM diabetic and have not had insulin in a week and have not checked blood sugar. Coronavirus screen: Client denies travel out of the [place] in the last 14 days. nausea, Client presents with at least one sign or symptom that may indicate coronavirus-19. Standard/surgical mask placed on the client. Provider contacted for isolation considerations. Ebola Screen: Patient negative for fever greater than or equal to 101.5 degrees Fahrenheit, and additional compatible Ebola Virus Disease symptoms Patient denies exposure to infectious person. Patient denies travel to an Ebola-affected area in the 21 days before illness onset. No symptoms or risks identified at this time. Initial Sepsis Screen: Does the patient meet any 2 criteria? No. Patient's initial sepsis screen is negative. Does the patient have a suspected source of infection? No. Patient's initial sepsis screen is negative. Risk Assessment: Do you want to hurt yourself or someone else? Patient reports no desire to harm self or others. Onset of symptoms was November 16, 2020. 15:48 Method Of Arrival: Ambulatory ca1 15:48 Acuity: LIZ 3 ca1 15:58 Note BGL HI. ca1 [place] END: 15:54 LMP N/A - Irregular menses ca1 Historical: - Allergies: 15:53 Zithromax; ca1 15:53 Macrobid; ca1 15:53 Rocephin; ca1 15:53 PENICILLINS; ca1 15:53 Tylenol; ca1 15:53 NSAIDS; ca1 15:53 Toradol; ca1 15:53 okana; ca1 15:53 Fentanyl; ca1 15:53 Methadone; ca1 15:53 hydrocodone; ca1 15:53 Codeine; ca1 - PMHx: 15:53 Diabetes - IDDM; Asthma; Migraines; ca1 - PSHx: 15:53 Cholecystectomy; Tubal ligation; laparascopy for endometriosis; large intestine removal;ca1 - Immunization history:: Flu vaccine is not up to date. - Social history:: Smoking status: Patient denies any tobacco usage or history of. Screenin:30 Abuse screen: Denies threats or abuse. Denies injuries from another. Nutritional zb screening: No deficits noted. Tuberculosis screening: No symptoms or risk factors identified. Fall Risk None identified. Assessment: 16:26 General: Appears in no apparent distress. uncomfortable, Behavior is calm, cooperative, zb appropriate for age, Reports chills for 0-12 hours, fatigue for 0-12 hours. Pain: Pain: Complains of pain in abdomen diffusely Pain currently is 2 out of 10 on a pain scale. Neuro: Level of Consciousness is awake, alert, obeys commands, Oriented to person, place, time, Reports dizziness, a syncopal episode weakness. Cardiovascular: Reports nausea, vomiting, Denies palpitations, shortness of breath, Capillary refill < 3 seconds Patient's skin is warm and dry. Respiratory: Airway is patent Respiratory effort is even, unlabored, Respiratory pattern is regular, symmetrical, Breath sounds are clear bilaterally. GI: Abdomen is round non-distended, Bowel sounds present X 4 quads. Abd is soft Abdomen is tender to palpation mild tenderness diffusely Reports nausea. : Reports urgency, since yesterday urinary frequency. EENT: No signs and/or symptoms were reported regarding the EENT system. Derm: Skin is intact, is healthy with good turgor, Skin is dry, Skin is normal, Skin temperature is warm. Musculoskeletal: Circulation, motion, and sensation intact. Capillary refill < 3 seconds, in bilateral fingers. Range of motion: intact in all extremities. 17:15 Reassessment: Patient appears in no apparent distress at this time. Patient and/or zb family updated on plan of care and expected duration. Pain level reassessed. patient states that her pain is worst on her left flank area. notified ECP. 18:15 Reassessment: Patient appears in no apparent distress at this time. Patient and/or zb family updated on plan of care and expected duration. Pain level reassessed. Patient is alert, oriented x 3, equal unlabored respirations, skin warm/dry/pink. no changes at this time. iv fluids continue to infuse. patient states pain in currently manageable Patient states feeling better. 19:26 Reassessment: Patient appears in no apparent distress at this time. Patient and/or zb family updated on plan of care and expected duration. Pain level reassessed. Patient is alert, oriented x 3, equal unlabored respirations, skin warm/dry/pink. no changes at this time. blood glucose 280. notified ECP. Vital Signs: 15:48 BP 129 / 100; Pulse 112; Resp 16 S; Temp 97.4(TE); Pulse Ox 95% on R/A; Weight 80.74 kg ca1 (R); Height 5 ft. 4 in. (162.56 cm); Pain 0/10; 16:30 BP 138 / 86; Pulse 119; Resp 20; Pulse Ox 96% on R/A; dh4 18:13 BP 105 / 59 RA Supine (auto/reg); Pulse 87; Pulse Ox 96% on R/A; dh4 18:13 BP 103 / 71 RA Sitting (auto/reg); Pulse 106; Pulse Ox 96% on R/A; dh4 18:13 BP 90 / 65 RA Standing (auto/reg); Pulse 109; Pulse Ox 95% on R/A; dh4 18:47 BP 101 / 62; Pulse 86; Pulse Ox 97% on R/A; dh4 19:26 BP 110 / 71; Pulse 85; Resp 18; Pulse Ox 96% on R/A; zb 15:48 Body Mass Index 30.55 (80.74 kg, 162.56 cm) ca1 ED Course: 15:30 Patient arrived in ED. ag5 15:51 Triage completed. ca1 15:53 Corie Tidwell [facility]-C [facility]. kb 15:53 Karan Duncan MD is Attending Physician. kb 15:53 Arm band placed on right wrist. ca1 15:55 Meenakshi Alva RN is Primary Nurse. zb 16:18 Inserted saline lock: 20 gauge in left antecubital area, using aseptic technique. dh4 17:26 CT Stone Protocol In Process Unspecified. EDMS 18:00 Patient has correct armband on for positive identification. Fall risk band placed. Bed zb in low position. Call light in reach. Side rails up X 1. Pulse ox on. NIBP on. 19:25 Recheck. zb 19:39 No provider procedures requiring assistance completed. IV discontinued, intact, zb bleeding controlled, No redness/swelling at site. Pressure dressing applied. Administered Medications: 16:20 Drug: NS 0.9% 1000 ml Route: IV; Rate: 1000 ml; Site: left antecubital; zb 19:19 Follow up: Response: No adverse reaction; IV Status: Completed infusion; IV Intake: zb 1000ml 17:21 Drug: Insulin Regular Human 10 units {Co-Signature: iw (Lorene Powell RN).} Route: zb IVP; Site: left antecubital; 18:20 Follow up: Response: No adverse reaction; Blood sugar is lowered zb 18:22 Drug: NS 0.9% 1000 ml Route: IV; Rate: 1000 ml; Site: left antecubital; zb 19:42 Follow up: Response: No adverse reaction; IV Status: Completed infusion; IV Intake: zb 1000ml Point of Care Testing: Blood Glucose: 15:59 Blood Glucose: High (>450 mg/dL); ca1 Ranges: Intake: 19:19 IV: 1000ml; Total: 1000ml. zb 19:42 IV: 1000ml; Total: 2000ml. zb Outcome: 19:32 Discharge ordered by MD. kb 19:39 Discharged to home ambulatory. zb 19:39 Condition: stable 19:42 Discharge instructions given to patient, Instructed on discharge instructions, follow zb up and referral plans. Demonstrated understanding of instructions, follow-up care. 19:43 Patient left the ED. zb Signatures: Dispatcher [employer] Corie Machuca, LUBNA BALL-Indu Peterson RN RN ca1 Farheen Price Donald Meenakshi Waddell RN RN zb Lorene snyder Corrections: (The following items were deleted from the chart) 18:49 18:47 BP 105 / 77; Pulse 90bpm; Pulse Ox 97% RA; dh4 dh4
[2020-11-16 21:06] VITALS: TEMP 97.4
[2020-11-16 21:12] VITALS: BP 110/71; O2SAT 96
--- NOTE | 2020-11-17 05:37 | EKG ---
Test Date: 2020-11-16 Test Time: 16:26:33 Shape Hand: DENISE MEASUREMENT RESULTS: Intervals: Rate: 108 MT: 136 QRSD: 74 QT: 320 QTc: 428 [place]: P: 43 MT: 136 QRS: 76 T: 21 INTERPRETIVE STATEMENTS: Sinus tachycardia Nonspecific T wave abnormality Abnormal ECG No previous ECG available for comparison Electronically Signed On 11-17-20 05:35:27 AUTOMOTIVE BRAKE TECHNICIAN by Magnus Wang
== END 2020-11-16 19:43 | disposition home or self-care (01) ==
LOC: ER 15:27
DX: E11.65 Type 2 diabetes mellitus with hyperglycemia (principal); E86.9 Volume depletion, unspecified; Z88.1 Allergy status to other antibiotic agents; Z88.5 Allergy status to narcotic agent; Z88.6 Allergy status to analgesic agent; Z88.8 Allergy status to other drugs, medicaments and biological substances
CPT/HCPCS: 85025; 80048; 36415; 82010; 81025; 82947 ×3; 81003; 76377; 74176; J7030 ×2; 93005; 96361; 96374; 99284

== ENCOUNTER 2022-05-01 11:42 | Emergency (ER) | payer OTHER ==
--- OUTSIDE RECORDS SUMMARY | 2022-05-01 11:49 | XMS REPORT | Continuity of Care Document ---
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 00:00:00 Glucose (Point of Care In Office) 2019-12-10 [facility] 00:00:00 [QLH] CMP W/EGFR 2019-12-10 [facility] 00:00:00 [QLH] LIPID PANEL 2019-12-10 [facility] 00:00:00 [QLH] MICROALBUMIN, RANDOM URINE 2019-12-10 [facility] (W/O CREATININE) 00:00:00 [QLH] T4, FREE 2019-12-10 [facility] 00:00:00 [QLH] TSH, 3RD GENERATION W/REFLEX 2019-12-10 [facility] TO FT4 00:00:00 [QLH] CBC (INCLUDES DIFF/PLT) 2019-12-10 [facility] 00:00:00 History of Diagnostic [facility] Esophagogastroduodenoscopy History of Complete Colonoscopy [facility] History of Appendectomy [facility] History of Cholecystectomy [facility] History of Tubal Ligation [facility] History of Laparos Total Colectomy [facility] W/ Proctectomy, Ileoanal Anastomosis History of Cervical loop [facility] electrosurgical excision History of Cervical cryosurgery [facility] Plan of Care Planned Activity Planned Date Details Comments Source Future Scheduled Test 2020-03-01 00:00:00 [QL] CORTISOL, TOTAL [facility] [code = [QL] CORTISOL, TOTAL] Future Scheduled Test 2020-03-01 00:00:00 [QL] CORTISOL, TOTAL [facility] [code = [QL] CORTISOL, TOTAL] Encounters Start End Encounter Admission Attending Care Care Encounter Source Date/Time Date/Time Type Type Clinicians Facility Department ID 2022-04-[address] [facility] [id number] [place] 11:02:47 [id number] Health 2022-02-[address] [facility] [id number] [place] 17:27:[id number] [facility] 2022-02-16 Outpatient UGGIL, [facility] [id number] [place] 09:51:47 COMFORT [id number] [facility] 2022-01-10 Outpatient UGHANZE, [facility] [id number] [place] 10:12:28 COMFORT [id number] Health 2021-12-[address] [facility] [id number] [place] 16:42:09 Health 2021-10-26 Outpatient JANNA SALDIVAR [id number] 17:49:40 Andmook banda 2020-04-08 Outpatient JARVIS GORDONBL BL [id number] MH BL 08:05:41 YUNIOR 2021-11-06 2021-11-06 Outpatient Tierra LORENZO [facility] [id number] Univers 13:30:00 13:30:00 CHRISTIANO hayden [facility] 2021-10-05 2021-10-05 [facility] [id number] Univers 10:30:00 11:19:06 Visit [facility] 350.1.13.10 it y of QUITMAN 4.2.7.2.686 Cesar as CHAUNCEY?BLEA [id number] [address] MEDICAL OFFICE BUILDING 2021-09-06 2021-09-06 Orders MALVIN Miller [id number] [place] 00:00:00 00:00:00 Only Comfort [facility] 350.1.13.58 H ealt MULTI 9.2.7.2.686 SPECIALTY [id number] CLINIC 7 2021-07-25 2021-07-25 Abstract MALVIN Miller [id number] [place] 00:00:00 00:00:00 Comfort [facility] 350.1.13.58 H ealth MULTI 9.2.7.2.686 SPECIALTY [id number] CLINIC 7 2021-07-25 2021-07-25 Refill Ml Phan [facility] 1.2.84 0.114 [id number] [place] 00:00:00 00:00:00 Ml Phan [facility] 350.1.13.5 8 Health [place] 1 9.2.7.2.686 [id number] 9 2021-07-25 2021-07-25 Refill Ml Phan [facility] 1.2.84 0.114 [id number] [place] 00:00:00 00:00:00 Ml Phan SE MED 350.1.13.5 8 Health [place] 1 9.2.7.2.686 [id number] 2021-07-25 2021-07-25 Refill Ml Phan [facility] 1.2.84 0.114 [id number] [place] 00:00:00 00:00:00 Ml Phan SE MED 350.1.13.5 8 Health [place] 1 9.2.7.2.686 [id number] 2020-12-28 2020-12-28 [facility] [id number] [place] 08:00:00 08:00:00 t; Karlos MARTINEZ, cox [place] Karlos MARTINEZ 2020-07-15 2020-07-15 [facility] [id number] [place] 08:30:00 08:30:00 t; , yeison Esquivel i, M.D. EFFROSYNI, M.D. 2020-05-23 2020-05-23 Outpatient [facility] BL MHBL [id number] MHBL 09:30:00 23:59:00 YUNIOR 2020-05-17 2020-05-17 [facility] [id number] [place] 09:30:00 09:30:00 t; KANA MILLER M.D. P jefry ROGER M.D. ans 2020-05-03 2020-05-03 Rickey MILLER, [facility] [id number] [place] 13:30:00 13:30:00 t; ANUSHA, Physi Liza Richardson M.D. 2020-04-29 2020-04-29 Rickey MILLER [facility] Obstetrics [id number] [place] 14:00:00 14:00:00 t; COMFORT, and Physi landon MILLER M.D. Gynecology ans Noni TAVARES M.D. Clinic 2020-04-29 2020-04-29 Rickey MILLER [facility] [id number] [place] 13:15:00 13:15:00 t; COMFORT, Physi ci Liza MILLER M.D. 2020-04-21 2020-04-21 Appointmen JUNIOR, [facility] Endocrinolo [id number] [place] 08:40:00 08:40:00 t; tiffany STEWART - [place] P hysilandon NAVASWANSON, NET ARCHITECT [facility] 2020-04-05 2020-04-05 Appointmen PAUL [facility] Rheumatolog [id number] [place] 08:00:00 08:00:00 t; KANA MILLER M.D. y P jefry ROGER M.D. cox monett 2020 2020 Appointmen [facility] Minimally [id number] [place] 13:00:00 13:00:00 t; JD CALVIN, Invasive Phys ici Liza MILES [facility] [place] Liza [place] ([facility]) 2020 2020 App[facility] [id number] [place] 09:00:00 09:00:00 t; JD CALVIN, Physi ci Liza MILES M.D. 2020-02-29 2020-02-29 Appointmen [facility] Multispecia [id number] [place] 15:00:00 15:00:00 t; JOCELYN WALDEN lty - Ph Liza Marti M.D. 2020-01-29 2020-01-29 [facility] UTP [id number] [place] 14:00:00 14:00:00 t; NURSE Physic i MATTHEW cox [place] NURSE 2020-01-21 2020-01-21 [facility] Multispecia 64 [id number] [place] 08:40:00 08:40:00 t; lt PATy - Phys ici [facility] LOYAONIA, [facility] 2020-01-18 2020-01-18 Appointradha [facility] Women's [id number] [place] 09:45:00 09:45:00 t; ANUSHA, Center - Phys Liza Roque M.D. 2020-01-04 2020-01-04 Appointradha [facility] Women's [id number] [place] 10:00:00 10:00:00 t; ANUSHA, Center - Phys Liza Roque M.D. 2019-12-29 2019-12-29 Appointmen [facility] [id number] [place] 14:00:00 14:00:00 t; JD CALVIN, Physi ci Liza MILES M.D. 2019-12-29 2019-12-29 Appointmen MARIXA [facility] Minimally [id number] [place] 10:30:00 10:30:00 t; JD CALVIN, Invasive Phys kylee MILES M.D. [facility] ro[facility] [place] Jesus [place] ([facility]) 2019-12-14 2019-12-14 Appointmen [facility] [id number] [place] 09:15:00 09:15:00 t; ANTONY SABA M.D. Physici KAREN, ans M.D. 2019-12-10 2019-12-10 Emergency E AZNAUROVA-A BL BL 7516 BL 18:31:00 20:58:00 CAIN NEWSOME 2019-12-10 2019-12-10 Appointmen JUNIOR [facility] Multispecia 64 [id number] [place] 09:00:00 09:00:00 t; shay STEWART - Phys kylee PACHECO, JODIE STEWART APRN 2019-12-04 2019-12-04 Emergency [facility], [facility] [id number] 10:09:57 12:14:00 Madhuri Crawford 350.1.13.10 [place] 4.2.7.2.686 [place] [id number] 2019-12-04 2019-12-04 Orders Doctor SYLVIA 1.2.840.114 [id number] 00:00:00 00:00:00 Only Unassigned, NOA 350.1.13.10 [place] [facility] 4.2.7.2.686 [id number] 2019-11-27 2019-11-27 Outpatient GETACHEW GORDON MHBL [id number] MHBL 10:54:00 15:00:00 YUNIOR 2019-11-12 2019-11-13 Emergency [facility], [facility] [id number] 21:40:46 01:33:00 Delon Crawford 350.1.13.10 [place] 4.2.7.2.686 [place] [id number] 2019-11-12 2019-11-12 Orders Doctor SYLVIA 1.2.840.114 [id number] 00:00:00 00:00:00 Only Unassigned, NOA 350.1.13.10 [place] [facility] 4.2.7.2.686 [id number] [id number] 2019-11-11 2019-11-11 Emergency E JOSE, MHBL MHBL 7514 MHBL 15:43:00 21:06:00 ELANA 2019-09-14 2019-09-14 Emergency E MHBL MHBL 7513 MHBL 15:17:00 15:17:00 2019-05-07 2019-05-07 Outpatient MHBL MINAL 7512 MHBL 05:39:00 05:39:00 Results Test Description Test Time Test Comments Results Result Comments Source [Q] HEPATITIS PANEL, ACUTE W/REFLEX 2020-05-04 07:27:00 Test Item Value Reference Range Interpretation Comme nts HEPATITIS NON-REACTIVE NON-REACTIVE N For additional information, please refer to A IGM http://Pinpoint MDatio n.[employer].Flexiant/faq/GST146 (test code (This link is b eing provided for = informational/e ducational purposes only.) HEPATITIS A IGM) HEPATITIS NON-REACTIVE NON-REACTIVE N B SURFACE ANTIGEN; Normal (test code = 5195-3) HEPATITIS NON-REACTIVE NON-REACTIVE N B CORE ANTIBODY (IGM); Normal (test code = 97098-2) HEPATITIS NON-REACTIVE NON-REACTIVE N C ANTIBODY; Normal (test code = 71190-5) SIGNAL TO 0.02 <1.00 N HCV antibody wa s non-reactive. There is no CUT-OFF laboratory evid ence of HCV infection. In most (test code cases, no furth er action is required. However,if = SIGNAL recent HCV expo sure is suspected, a test for HCV TO RNA(test code 3 5645) is suggested. For additional CUT-OFF) information ple ase refer tohttp://educat ion.[employer].Flexiant/faq/FAQ22 v1(This link is being provided for informational/e ducational purposes only.) [facility][QL] CMP [id number] 07:27:00 Test Item Value Reference Range Interpretation [...] 97 {ML/MIN/1.7} > OR = 60 N CYPRIOT (test code = eGFR NON-AFR. CYPRIOT) eGFR 113 {ML/MIN/1.7} > OR = 60 N CYPRIOT (test code = eGFR ) BUN/CREATININE NOT [...] mg/dl 0.2-1.2 N Normal (test code = 59778-0) ALKALINE 178 u/l 31-125 PHOSPHATASE (test code = ALKALINE PHOSPHATASE) AST; Above High 45 u/l 10-30 Threshold (test code = 1916-6) ALT; Above High 49 u/l 6-29 Threshold (test code = 1742-6) [facility][QL] SED RATE BY MODIFIED [id number] 07:27:00 Test Item Value Reference Range Interpretation [...] Pl easecontact us with any questi ons. [facility][QL] CBC (INCLUDES DIFF/PLT)2020-05-04 07:27:00 Test Item Value Reference Range Interpretation Comments WHITE BLOOD CELL COUNT 10.2 {Thousand/u} 3.8-10.8 N (test code = WHITE BLOOD CELL COUNT) RED BLOOD CELL COUNT (test 5.44 {Million/uL} 3.80-5.10 code = RED BLOOD CELL COUNT) HEMOGLOBIN; Normal (test 15.0 g/dl 11.7-15.5 N code = 42013-9) HEMATOCRIT; Above High 46.5 % 35.0-45.0 Threshold (test code = 4544-3) MCV; Normal (test code = 85.5 fL 80.0-100.0 N 787-2) MCHC; Normal (test code = 32.3 g/dl 32.0-36.0 N 46439-8) RDW; Normal (test code = 13.7 % 11.0-15.0 N 788-0) PLATELET COUNT; Normal 366 {Thousand/u} 140-400 N (test code = 777-3) MPV; Normal (test code = 10.9 fL 7.5-12.5 N 92916-4) ABSOLUTE NEUTROPHILS (test 4570 {cells/uL} 0229-5353 N code = ABSOLUTE NEUTROPHILS) ABSOLUTE LYMPHOCYTES [...] Normal (test 4.2 % N code = 31114-7) EOSINOPHILS; Normal (test 2.1 % N code = 04121-3) BASOPHILS; Normal (test 0.6 % N code = 66394-9) [facility][Q] SED RATE BY MODIFIED WESTERGREN, [id number] 07:27:00 Test Item Value Reference Range Interpretation Comments SED RATE BY MODIFIED WESTERGREN, 35 mm/h < OR = 20 MANUAL (test code = SED RATE BY MODIFIED WESTERGREN, MANUAL) [facility][QL] C-REACTIVE [id number] 07:27:00 Test Item Value Reference Range Interpretation Comments C-REACTIVE PROTEIN (test code = 31.3 mg/L <8.0 C-REACTIVE PROTEIN) [facility][Q] QUANTIFERON( R)-TB GOLD PLUS, 1 [id number] 07:27:00 Test Item Value Reference Range Interpretation [...] For additional info rmation, please refer tohttps://educa stefano.Bookmycab/f aq/VOZ189(Th is link is joseph zhao provided for informational/e ducational purposes only.) [place] [facility]iciansUS Abdomen RUQ [id number] 10:16:00PROCEDURE INFORMATION:Exam: US Abdomen, Limited; Right Upper [...] ductal ectasia.Bandar Moya MD On 04/12/2020 10:54:57; [id number]--Mlpv by: Bandar Moya MDDictated Date/time: 04/12/20 10:54Electronically Signed by: Bandar Moya MD 04/12/2010:54FINAL REPORTUT PhysiciansXRAY Foot 3 views Bilateral [id number] 2020-04-05 10:20:00EXAM: XR BILATERAL FOOT 3 VIEWSDATE: 04/05/2020 10:12 CDTINDICATION: - M25.50 Pain in unspecified jointCOMPARISON: None.TECHNIQUE: AP, lateral and oblique radiographs of the bilateral feetFINDINGS: No acute fracture or malalignment is identified. No joint spacenarrowing, osteophyte formation or cysts.No soft tissue abnormality is identified.IMPRESSION: Normal exam of the bilateral feet.--This report was dictated by a Flying Ii Instructor/Fellow/Physician Underwear Cutter. Ihave personallyreviewed the images as well as the interpretation and agree with the findings.Read by: Haja Argueta MD Resident/Fellow/PhysicianAssistant: Haja Argueta MDDictated Date/time: 04/05/20 11:29Electronically Signed by:Chet Gee MD 04/05/2011:53FINAL REPORTUT PhysiciansXRAY Hand AP lateral oblique Bilateral [id number] 10:10:00EXAM: XR BILATERAL HAND 4 VIEWSDATE: 04/05/2020 10:11 CDTINDICATION: - M25.50 Pain in unspecified jointCOMPARISON: None.TECHNIQUE: PA, [place], lateral and oblique radiographs of the bilateralhands.FINDINGS:No acute fracture or malalignment is identified. No osseous erosions or cysts.Joint spaces and bone mineral density are preserved.No soft tissue abnormality is identified.IMPRESSION: Normal exam of the bilateral hands.--This report was dictated by a Flying Ii Instructor/Fellow/Physician Underwear Cutter. Ihave personallyreviewed the images as well as the interpretation and agree with the findings.Read by: Haja Argueta MD Resident/Fellow/PhysicianAssistant: Haja Argueta MDDictated Date/time: 04/05/20 11:34Electronically Signed by: Chet Gee MD 04/05/2011:55FINAL REPORTUT Physicians[QL] JODY PANEL, [id number] 09:10:00 Test Item Value Reference Range Interpretation [...] For additional info rmation, please refer tohttp://educat ion.GREE International/faq /XWP143(This link is being p rovided for informational/e ducational purposes only.) DNA (DS) ANTIBODY <1 N IU/mL Inte rpretation < or = (test code = DNA 4 Negative 5-9 (DS) ANTIBODY) Indeterminate > or = 10 Positive SCL-70 ANTIBODY <1.0 NEG <1.0 NEG N (test code = SCL-70 ANTIBODY) SM ANTIBODY (test <1.0 NEG <1.0 NEG N code = SM ANTIBODY) SM/DIRECTOR OF ATHLETICS ANTIBODY <1.0 NEG <1.0 NEG N (test code = SM/DIRECTOR OF ATHLETICS ANTIBODY) SJOGRENS ANTIBODY <1.0 NEG <1.0 NEG N (SS-A) (test code = SJOGRENS ANTIBODY (SS-A)) SJOGRENS ANTIBODY <1.0 NEG <1.0 NEG N (SS-B) (test code = SJOGRENS ANTIBODY (SS-B)) [facility][QL] CREATINE KINASE, [id number] 09:10:00 Test Item Value Reference Range Interpretation Comments CREATINE KINASE, TOTAL (test code = 91 u/l 29-143 N CREATINE KINASE, TOTAL) [facility][QL] URINALYSIS, COMPLETE W/REFLEX TO [id number] 09:10:00 Test Item Value Reference Range Interpretation [...] Normal (test NEGATIVE NEGATIVE N code = 55088-3) KETONES; Normal (test code NEGATIVE NEGATIVE N = 30591-9) OCCULT BLOOD; Normal (test NEGATIVE NEGATIVE N code = 64444-2) PROTEIN; Normal (test code NEGATIVE NEGATIVE N = 04214-8) NITRITE (test code = NEGATIVE NEGATIVE N NITRITE) LEUKOCYTE ESTERASE (test 1+ NEGATIVE A code = LEUKOCYTE ESTERASE) WBC; Abnormal (test code = 10-20 < OR = 5 A 6690-2) RBC; Normal (test code = NONE SEEN < OR = 2 N 789-8) SQUAMOUS EPITHELIAL CELLS; 20-27 < OR = 5 A Abnormal (test code = 82020-2) BACTERIA; Abnormal (test FEW NONE SEEN A code = 630-4) URIC ACID CRYSTALS; Normal FEW NONE OR FEW N (test code = 95179-7) HYALINE CAST; Abnormal 0-5 NONE SEEN A (test code = 89604-0) YEAST; Abnormal (test code FEW NONE SEEN A = 72742-4) COMMENTS (test code = FEW MUCOUS THREADS 09217-9) [facility][Q] CYCLIC CITRULLINATED PEPTIDE (CCP) AB (IGG)2020-04-05 09:10:00 Test Item Value Reference Range Interpretation Comments CYCLIC CITRULLINATED <16 N Referen ce PEPTIDE (CCP) AB (IGG) Range Negative: <20Weak (test code = CYCLIC Positive : CITRULLINATED PEPTIDE 20-39M oderate (CCP) AB (IGG)) Positive: 40 -59Strong Positive: >59 [facility][Q] REFLEXIVE URINE [id number] 09:10:00 Test Item Value Reference Range Interpretation Comments REFLEXIVE URINE CULTURE CULTURE INDICATED - (test code = REFLEXIVE RESULTS TO FOLLOW URINE CULTURE) [facility][QL] CULTURE, URINE, [id number] 09:10:00 Test Item Value Reference Range Interpretation Comments CULTURE (test code See Comment A CULTURE, URINE, ROUTINE = CULTURE) Micro Number: [id number] Test Status: Fi nal Specimen Source : URINE Specimen Qualit y: Adequate Result : 10,000-50,000 C FU/mL of Group B Strepto coccus isolated Beta-h emolytic Streptococci ar e predictably adolfo ceptible to penicillin a nd other beta-lactams. Susceptibility testing not routinely p erformed. Any amount of g roup B Streptococcus i n urine specimens obtai robin from female s is a marker of genit al tract colonization. I f this patient is preg nant, please refer to ACOG guidelines for appropriate scr eening and management of women. Comment: Erythromycin an d clindamycin are not recommended for treatment of ur inary tract infection s, but clindamycin may be useful for lala tment of rectovaginal colonization or infection. Resu lt: Three or more organis ms present, each g reater than 10,000 CFU /mL. May represent yee l rita contamination f rom external genita beata. No further testing is required. [facility][QL] CORTISOL, [id number] 08:10:00 Test Item Value Reference Range Interpretation Comments CORTISOL, TOTAL 0.8 {mcg/dl} Reference Ra nge: For 8 (test code = a.m.(7-9 a.m.) CORTISOL, TOTAL) Specimen: 4.0-22.0Referen ce Range: For 4 p. m.(3-5 p.m.) Specimen: 3.0-17.0 * Plea se interpret above results accordingly * [facility][QL] CORTISOL, [id number] 08:42:00 Test Item Value Reference Range Interpretation Comments CORTISOL, TOTAL 15.6 {mcg/dl} N Reference R marko: For 8 (test code = a.m.(7-9 a.m.) CORTISOL, TOTAL) Specimen: 4.0-22.0Referen ce Range: For 4 p. m.(3-5 p.m.) Specimen: 3.0-17.0 * Plea se interpret above results accordingly * [facility][QL] FSH AND [id number] 08:42:00 Test Item Value Reference Range Interpretation Comments FSH (test code 6.9 {miU/ml} N Reference Ran ge Follicular = FSH) Phase 2.5-10.2 Mid-cycle Peak 3.1-17.7 L uteal Phase 1.5- 9.1 Postme nopausal 23.0-116.3 LH (test code = 0.6 {miU/ml} N Reference Ra ngeFollicular LH) Phase 1.9-12.5M id-Cycle Peak 8.7-76.3Lu teal Phase 0.5-16.9Postmen opausal 10.0-54.7 [facility][QL] ACTH, [id number] 08:42:00 Test Item Value Reference Range Interpretation Comments ACTH, PLASMA (test 17 pg/ml 6-50 Reference range applies code = ACTH, only to the spe cimens PLASMA) collectedbetwee n 7am-10am. [facility][Q] IGF I, [id number] 08:42:00 Test Item Value Reference Range Interpretation Comments IGF I, ECL 69 ng/ml 53-331 (test code = IGF I, ECL) Z SCORE -1.5 {SD} -2.0-+2.0 This test was d eveloped and its (FEMALE) analytical (test code = performancechar acteristics have Z SCORE been determined by [facility] (FEMALE)) [facility] . It has not beencleared or approved by FDA. This assay has been validatedpursua nt to the CLIA regulations and is used for clinicalpurpose s. [facility][Q] PLASMA RENIN ACTIVITY,[id number] 08:42:00 Test Item Value Reference Range Interpretation Comments PLASMA RENIN 2.33 0.25-5.82 This test was d eveloped and its ACTIVITY,LC/ ng/mL/h analytical MS/MS (test performancechar acteristics have code = been determined by [facility] PLASMA RENIN [facility] ACTIVITY,LC/ [place] . It has not MS/MS) beencleared or approved by FDA. This assay has been validatedpursua nt to the CLIA regulations and is used for clinicalpurpose s. [facility][QL] METANEPHRINES, FRACT, LC/MS/MS, [id number] 08:42:00 Test Item Value Reference Interpretation Comments Range METANEPHRINE (test <25 < OR = 57 This test was developed and code = its analytical METANEPHRINE) performancecha racteristics have been deter mined by [facility] white. It has not beencleared or approved by FDA. This as say has been validatedpursua nt to the CLIA regulations and is used for clinicalpurpose s. NORMETANEPHRINE 74 pg/ml < OR = 148 This test wa s developed and (test code = its analytical NORMETANEPHRINE) performance characteristics have been deter mined by [facility] bartholomew. It has not beencleared or approved by [...] serum Chromogranin A forconfirmation . Reference: (1) [place]-S chimviolette Lovell et al, Plasma Event Management Consultant mogranin A orUrine Fractio nated Metanephrines F ollow-Up Testing Improve sthe Diagnostic Accu racy of Plasma Fractionated Me tanephrinesfor Pheochromocytom a. The Journal of Clinical End ocrinologyand Metabolism 93 ( 1),91-95, 2008. For addit ional information, pl ease refer tohttp://educat ion.Ulmon/faq/ MetFractFree(T his link is heladio messer provided for informational/e ducationalpurp oses only.) Thi s test was developed and i ts analytical performancechar acteristics have been deter mined by [facility]. It has not beencleared or approved by FDA. This as say has been validatedpursua nt to the CLIA regulations and is used for clinicalpurpose s. [facility][QL] ALDOSTERONE, [id number] 08:42:00 Test Item Value Reference Range Interpretation Comments ALDOSTERONE, 5 ng/dl Adult Reference Ranges for LC/MS/MS (test Aldosterone: Upright 8:00-10:00 code = am < or = 28 ng /dL Upright ALDOSTERONE, 4:00-6:00 pm < or = 21 ng/dL LC/MS/MS) Supine 8:00-10: 00 am 3-16 ng/dL This test was d lynnetteoped and its analytical performancechar acteristics have been determined by [facility]. It has not beencleared or approved by FDA. This assay has been validatedpursua nt to the CLIA regulations and is used for clinicalpurpose s. [facility][QL] GROWTH HORMONE (GH)2020-03-02 08:42:00 Test Item [...] ical GH response in hea lthy subjects: Using the glucose toleran ce (GH suppression) te st, acromegaly is r uled out if the patient' s GH level is <1.0 n g/mL at any point in th e timed sequence. [Loki friedman L, Nasim Jr ER, Stephanie garcia S, et al. Acromegaly: an Endocrine Socie ty Clinical Practi ce Guideline. J Cl in Endocrinol [place]ron b 2014; 99: 3933- 3951] . Using GH stimulation testing, the following r esult at any point in th e timed sequence makes GH deficiency unli nanda: Adults (> or = 20 years): Insulin Hypoglycemia > or = 5.1 ng/mL Arginine/ GHRH > or = 4.1 ng/mL Glu cagon > or = 3.0 ng/mL Children (< 20 years): A ll Stimulation Thompson ts > or = 10.0 ng/mL [facility][QL] [id number] 08:42:00 Test Item Value Reference Range Interpretation Comments PROLACTIN (test code 7.0 ng/ml N Referen ce Range Females = PROLACTIN) Non- 3. 0-30.0 10.0-2 09.0 Postmenopausal 2.0-20.0 [facility][QL] CATECHOLAMINES, FRACTIONATED, [id number] 08:42:00 Test Item Value Reference Interpretation Comments Range EPINEPHRINE (test <20 This test was developed and code = its analytical EPINEPHRINE) performancechar acteristics have been deter mined by [facility]. It has not beencleared or approved by FDA. This assay has been validatedpursua nt to the CLIA regulations and is used for clinicalpurpose s. NOREPINEPHRINE 716 pg/ml This test was developed and (test code = its analytical NOREPINEPHRINE) performancec haracteristics have been deter [facility]. It has not beencleared or approved by FDA. This assay has been validatedpursua nt to the CLIA regulations and is used for clinicalpurpose s. DOPAMINE (test <10 This test was developed and code = DOPAMINE) its analyti stalin performancechar acteristics have been deter [facility]. It has not beencleared or approved by FDA. This assay has been validatedpursua nt to the CLIA regulations and is used for clinicalpurpose s. TOTAL 716 pg/ml Adult Reference Ranges for CATECHOLAMINES Catecholamine s, Plasma (test code = TOTAL Epinephri ne Supine: <50 pg/mL CATECHOLAMINES) Upright: <95 pg/mL Norepinephrine Supine: 112-658 pg/mL Upright: 217-1109 pg/mL Dopamine Supine : <10 pg/mL Upright: <20 pg /mL Total (N+E+D) Supine: 123-671 pg/mL Upright: 242-11 25 pg/mL Pediatric Refer ence Ranges for Catecholamines, Plasma Due to stress, plasma catecholamine levels are gene rallyunreliable in infants and small children. Urinarycatechol amine assays are more reliab le. Epinephrine 3-15 Years Supi ne: < or = 464 pg/mL Upright: No Reference Range Available Norepinephrine 3-15 Years Supi ne: < or = 1251 pg/mL Upright: No Reference Range Available Dopamine 3-15 Years Supine: < 60 pg/mL Upright: No Ref erence Range Available Pedia tric data from J Chromatogr (2 316) 126:304-307. Th is test was developed and i ts analytical performancechar acteristics have been deter mined by [facility]. It has not beencleared or approved by FDA. This assay has been validatedpursua nt to the CLIA regulations and is used for clinicalpurpose s. [facility] Thyroid [id number] 12:31:00EXAM: US THYROIDDATE: 03/01/2020 12:26 PM CDTINDICATION: - familial adenomatous polyposis coliADDITIONAL INFORMATION: None.COMPARISON: None.TECHNIQUE: Multiplanar grayscale and color Doppler ultrasound of the neck wereobtained in the area of the thyroid.FINDINGS:Thyroid parenchyma: Normal.Size:Right thyroid: 3.8 x 1.7 x 1.5 cmLeft thyroid: 3.7 x 1.6 x 1.6 cmIsthmus thickness: 0.35 cmThyroid nodules: Wit hin the superolateral aspect of the left thyroid lobe,there is a solid hypoechoic smoothly marginated 0.8 x 0.4 x 0.4 cm nodule withno abnormal internal hyperechoic foci. TI RADS points: 4, TR 4.Cervical lymph nodes: Normal.IMPRESSION:1. Single 8 mm nodule in the right thyroid lobe which is not meet criteria forfine-needle aspiration at this time.2. No other nodules identified.REFERENCE:Sudheer FN, Kenisha WD, Da EG, et al. ACR Thyroid Imaging, Reporting andData System (TI-RADS): White Paper ofthe ACR TI-RADS Committee. J Am CollRadiol. 2017; 14(5): 587-595.--Read by: Aaron Duff MDDictated Date/time: 03/01/20 14:07Electronically Signed by: Aaron Duff MD 03/01/2014:13FINAL REPORT[facility][O] Hemoglobin A1c (in office) 2020-02-29 16:51:00 Test Item Value Reference Range Interpretation Comments HEMOGLOBIN A1c; Abnormal (test code = 10.3 A 4548-4) [facility]. [facility] - [id number] 00:00:00 Test Item Value Reference Range Interpretation Comments Case (test code = Click ImageLink button N Case) for report. [facility][O] Hemoglobin A1c (in office)2019-12-10 13:10:00 Test Item Value Reference Range Interpretation Comments HEMOGLOBIN A1c; Above High Threshold 11.1 (test code = 4548-4) [facility] ([facility] In Office)2019-12-10 13:10:00 Test Item Value Reference Range Interpretation Comments Glucose POC Lifescan (test code = 164 Glucose POC Lifescan) [facility]] CBC (INCLUDES DIFF/PLT)2019-12-10 10:48:01 Test Item Value Reference Range Interpretation Comments WBC; Above High Threshold (test 13.8 {K/CMM} 3.7-10.4 code = 6690-2) RBC (test code = 789-8) 4.73 {M/CMM} 4.20-5.40 Hgb (test code = 718-7) 14.2 g/dl 12.0-16.0 Hct (test code = 36608-0) 42.2 % 36.0-48.0 MCV (test code = 787-2) 89.2 fL 80.0-98.0 MCH (test code = 785-6) 30.0 pg 27.0-31.0 MCHC (test code = 786-4) 33.6 g/dl 32.0-36.0 RDW (test code = 788-0) 13.0 % 11.5-14.5 Platelet (test code = 14128-7) 338 {K/CMM} 133-450 Mean Platelet Volume (test code 8.8 fL 7.4-10.4 = 24989-8) [facility][QL] [id number] 10:48:01 Test Item Value Reference Range Interpretation Comments Segmented Neutrophils (test code 61.1 % 45.0-75.0 = 30510-3) Monocytes (test code = 10396-4) 4.9 % 2.0-12.0 Lymphocytes (test code = 02041-8) 32.1 % 20.0-40.0 Eosinophils (test code = 45764-1) 1.4 % 0.0-4.0 Basophils (test code = 706-2) 0.5 % 0.0-1.0 Segs-Bands #; Above High 8.4 {K/CMM} 1.5-8.1 Threshold (test code = 83998-7) Lymphocytes # (test code = 4.4 {K/CMM} 1.0-5.5 03090-8) Monocytes # (test code = 86161-0) 0.7 {K/CMM} 0.0-0.8 Eosinophils # (test code = 0.2 {K/CMM} 0.0-0.5 06474-9) Basophils # (test code = 29937-5) 0.1 {K/CMM} 0.0-0.2 [facility][QL] CMP [id number] 10:48:01 Test Item Value Reference Range Interpretation Comments Sodium Level 140 {mEq/l} 135-145 (test code = 2951-2) Potassium Level 3.9 {mEq/l} 3.5-5.1 (test code = 2823-3) Chloride Level 106 {mEq/l} 95-109 (test code = 2075-0) Carbon Dioxide 24 {mEq/l} 24-32 (test code = 8-9) AGAP (test code = 13.9 {mEq/l} 10.0-20.0 91963-1) Glucose Lvl; 135 mg/dl 70-99 Adult reference range Above High values reflect the Threshold (test clinical vidal delinesof the code = 2345-7) [place] [employer]. Creatinine Lvl 0.60 mg/dl 0.50-1.40 (test code = 2160-0) Blood Urea 10 mg/dl 7-22 Nitrogen (test code = 3094-0) BUN/Creatinine 17 6-25 Ratio (test code = 3097-3) Total Protein 7.6 g/dl 6.4-8.4 (test code = 2885-2) Albumin Lvl; 3.4 g/dl 3.5-5.0 Below Low Threshold (test code = 1751-7) Globulin (test 4.2 g/dl 2.7-4.2 code = 12813-9) A/G Ratio (test 0.8 0.7-1.6 code = 1759-0) Calcium Level 9.1 mg/dl 8.5-10.5 Total (test code = 76073-6) ALT; Above High 76 u/l 0-65 Threshold (test code = 1743-4) AST; Above High 66 u/l 0-37 Threshold (test code = 83785-0) Bili Total (test 0.4 mg/dl 0.2-1.3 code = 1975-2) Alk Phos; Above 138 u/l 39-136 The pediatri c reference High Threshold ranges for th is test (test code = represent a 1783-0) CLSI-basedtrans ference of the CALIPER sandi abase of pediatric refer ence intervals to th [employer] [place] analyzer (Clinical Biochemistry 46 (2013): 4389-1325). [facility] has not internally validated these reference ranges and therefore they should be used only in e context of a thoroughcl inical assessment. eGFR (test code = 116 The eGFR i s calculated 28268-4) {ML/MIN/1.7} using the CKD-E PI formula. In [...] be multiplied by t he estimated BMI. [facility]] LIPID [id number] 10:48:01 Test Item Value Reference Range Interpretation Comments Chol (test code = 2093-3) 175 mg/dl <=199 Trig (test code = 2571-8) 136 mg/dl <=149 HDL Cholesterol; Below Low 35 mg/dl >=61 Threshold (test code = 2085-9) CHD Risk (test code = 61077-5) 5.00 3.90-5.80 LDL; Above High Threshold (test 113 mg/dl <=99 code = 19263-1) VLDL (test code = VLDL) 27 [facility][QL] T4, [id number] 10:48:01 Test Item Value Reference Range Interpretation Comments T4 Free (test code = 3024-7) 1.12 ng/dl 0.76-1.46 [facility]] TSH, 3RD GENERATION W/REFLEX TO [id number] 10:48:01 Test Item Value Reference Range Interpretation Comments TSH (test code = 57992-0) 1.950 {uIU/ml} 0.360-3.740 [facility][QL] MICROALBUMIN, RANDOM URINE (W/O CREATININE)2019-12-10 10:48:01 Test Item Value Reference Range Interpretation Comments U Alb (test code = 33.3 mg/L No establ ished reference U Alb) range. [facility][QL] CBC (INCLUDES DIFF/PLT)2019-12-10 10:48:01 Test Item Value Reference Range Interpretation Comments WBC; Above High Threshold (test 13.8 {K/CMM} 3.7-10.4 code = 6690-2) RBC (test code = 789-8) 4.73 {M/CMM} 4.20-5.40 Hgb (test code = 718-7) 14.2 g/dl 12.0-16.0 Hct (test code = 33007-6) 42.2 % 36.0-48.0 MCV (test code = 787-2) 89.2 fL 80.0-98.0 MCH (test code = 785-6) 30.0 pg 27.0-31.0 MCHC (test code = 786-4) 33.6 g/dl 32.0-36.0 RDW (test code = 788-0) 13.0 % 11.5-14.5 Platelet (test code = 75206-2) 338 {K/CMM} 133-450 Mean Platelet Volume (test code 8.8 fL 7.4-10.4 = 08453-7) [facility][QL] [id number] 10:48:01 Test Item Value Reference Range Interpretation Comments Segmented Neutrophils (test code 61.1 % 45.0-75.0 = 99078-9) Monocytes (test code = 59061-2) 4.9 % 2.0-12.0 Lymphocytes (test code = 27804-8) 32.1 % 20.0-40.0 Eosinophils (test code = 04250-6) 1.4 % 0.0-4.0 Basophils (test code = 706-2) 0.5 % 0.0-1.0 Segs-Bands #; Above High 8.4 {K/CMM} 1.5-8.1 Threshold (test code = 84889-5) Lymphocytes # (test code = 4.4 {K/CMM} 1.0-5.5 45784-7) Monocytes # (test code = 37248-1) 0.7 {K/CMM} 0.0-0.8 Eosinophils # (test code = 0.2 {K/CMM} 0.0-0.5 93713-6) Basophils # (test code = 71359-7) 0.1 {K/CMM} 0.0-0.2 [facility][QL] CMP [id number] 10:48:01 Test Item Value Reference Range Interpretation Comments Sodium Level 140 {mEq/l} 135-145 (test code = 2951-2) Potassium Level 3.9 {mEq/l} 3.5-5.1 (test code = 2823-3) Chloride Level 106 {mEq/l} 95-109 (test code = 5-0) Carbon Dioxide 24 {mEq/l} 24-32 (test code = 2027-9) AGAP (test code = 13.9 {mEq/l} 10.0-20.0 01211-3) Glucose Lvl; 135 mg/dl 70-99 Adult reference range Above High values reflect the Threshold (test clinical vidal delinesof the code = 2345-7) [place] [employer] etes [employer]. Creatinine Lvl 0.60 mg/dl 0.50-1.40 (test code = 2160-0) Blood Urea 10 mg/dl 7-22 Nitrogen (test code = 3094-0) BUN/Creatinine 17 6-25 Ratio (test code = 3097-3) Total Protein 7.6 g/dl 6.4-8.4 (test code = 2885-2) Albumin Lvl; 3.4 g/dl 3.5-5.0 Below Low Threshold (test code = 1751-7) Globulin (test 4.2 g/dl 2.7-4.2 code = 48186-2) A/G Ratio (test 0.8 0.7-1.6 code = 1759-0) Calcium Level 9.1 mg/dl 8.5-10.5 Total (test code = 93470-1) ALT; Above High 76 u/l 0-65 Threshold (test code = 1743-4) AST; Above High 66 u/l 0-37 Threshold (test code = 69386-0) Bili Total (test 0.4 mg/dl 0.2-1.3 code = 1974-2) Alk Phos; Above 138 u/l 39-136 The pediatri c reference High Threshold ranges for th is test (test code = represent a 1783-0) CLSI-basedtrans ference of the CALIPER sandi abase of pediatric refer ence intervals to [employer] [place] analyzer (Clinical Biochemistry 46 (2013): 7371-9557). [facility] has not internally validated these reference ranges and therefore they should be used only in th e context of a thoroughcl inical assessment. eGFR (test code = 116 The eGFR i s calculated 88404-0) {ML/MIN/1.7} using the CKD-E PI formula. In [...] be multiplied by t he estimated BMI. [facility][QL] LIPID [id number] 10:48:01 Test Item Value Reference Range Interpretation Comments Chol (test code = 3-3) 175 mg/dl <=199 Trig (test code = 2571-8) 136 mg/dl <=149 HDL Cholesterol; Below Low 35 mg/dl >=61 Threshold (test code = 2085-9) CHD Risk (test code = 65543-6) 5.00 3.90-5.80 LDL; Above High Threshold (test 113 mg/dl <=99 code = 38758-1) VLDL (test code = VLDL) 27 [facility][QL] T4, [id number] 10:48:01 Test Item Value Reference Range Interpretation Comments T4 Free (test code = 3024-7) 1.12 ng/dl 0.76-1.46 [facility][QL] TSH, 3RD GENERATION W/REFLEX TO [id number] 10:48:01 Test Item Value Reference Range Interpretation Comments TSH (test code = 12047-1) 1.950 {uIU/ml} 0.360-3.740 [facility]
[2022-05-01 12:06] LABS: Urine Blood Trace-intact (Negative); Urine Glucose 2+ (Negative); Urine Protein Negative (Negative); Urine Specific Gravity >=1.030 (1.005-1.030)
[2022-05-01 12:25] LABS: Urine Bacteria >50 /HPF (<20); Urine RBC <5 /HPF (None Seen)
[2022-05-01] MEDS ORDERED: ONDANSETRON 4 MG/2 ML VIAL ONE (12:27)
[2022-05-01] MEDS ORDERED: MORPHINE 4 MG/ML SYR ONE ×2 (12:27→15:50)
[2022-05-01] MEDS ORDERED: NA CHLORIDE 0.9% 1,000 ML ONE (12:27)
[2022-05-01 12:53] LABS: Absolute Lymphocytes (CBC) 4.4 K/uL (0.7-4.9); Hematocrit 46.9 % (36.0-45.0); MCV 87.7 fL (80-100); MPV 8.2 fL (7.6-11.3); RBC Red Blood Cell Count 5.35 M/uL (3.86-4.86)
[2022-05-01 13:07] LABS: Albumin 3.4 g/dL (3.4-5.0); Bilirubin Total 0.4 mg/dL (0.2-1.0); Protein, Total 8.1 g/dL (6.4-8.2)
[2022-05-01] MEDS ORDERED: CIPROFLOXACIN 400mg IV 400 MG/200 ML BAG IV ONE (13:28)
--- NOTE | 2022-05-01 13:50 | RAD REPORT ---
EXAM DESCRIPTION: CTAbdomen Pelvis W Contrast - 05/01/2022 1:39 pm CLINICAL HISTORY: Abdominal pain. Abdominal pain, acute, nonlocalized COMPARISON: CT ABD PELVIS W CONTRAST dated 09/21/2015; CT ABD PELVIS W CONTRAST dated 03/06/2015; CT ABD PELVIS W CONTRAST dated 12/17/2014 TECHNIQUE: Biphasic CT imaging of the abdomen and pelvis was performed with 100 ml non-ionic IV cont rast. All CT scans are performed using dose optimization technique as appropriate and may include automated exposure control or mA/KV adjustment according to patient size. FINDINGS: Mild linear subsegmental atelectasis is seen in both posterior lung bases.Cholecystectomy. Mild diffuse fatty liver. No focal lesion or biliary dilatation. The spleen, pancreas, right adrenal gland and kidneys are within normal limits. 15 mm left adrenal mass, unchanged. No bowel obstruction, free air, free fluid or abscess. Near-total colectomy. Soft tissue mass contain ing small foci of gas in the left abdomen is again seen slightly larger than on 2015 study, measuring 3.1 x 2 cm. No evidence of significant lymphadenopathy. No suspicious bony findings. IMPRESSION: No acute intra-abdominal or pelvic finding. Near total colectomy.
--- NOTE | 2022-05-01 14:20 | EDPHYS ---
Physician Documentation [facility] Name: Becca Gomez Age: 42 yrs Sex: Female : 1980 Arrival Date: 05/01/2022 Time: 11:46 Bed 26 Private MD: Krishna Atkinson HPI: 05/01 12:34 This 42 yrs old Female presents to ER via Ambulatory with complaints of Pelvic brandy Pain, Abdominal Pain. 12:34 The patient presents with abdominal pain in the lower abdomen. Onset: The brandy symptoms/episode began/occurred 3 day(s) ago. The patient presents with pain that is acute, with no known mechanism of injury. The symptoms are located in the low back, left low back, left mid back, right mid back and right low back. Onset: The symptoms/episode began/occurred 2 day(s) ago. The pain does not radiate. Associated signs and symptoms: The patient has no apparent associated signs or symptoms. The problem was sustained from unknown cause. Modifying factors: The patient symptoms are alleviated by nothing, the patient symptoms are aggravated by nothing. Severity of symptoms: At their worst the symptoms were mild, yesterday, moderate, yesterday, in the emergency department the symptoms are unchanged. 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 - Social history:: Smoking status: Patient denies any tobacco usage or history of. - Family history:: not pertinent. ROS: 12:34 Constitutional: Negative for fever, chills, and weight loss, Eyes: Negative for injury, brandy pain, redness, and discharge, ENT: Negative for injury, pain, and discharge, Neck: Negative for injury, pain, and swelling, Cardiovascular: Negative for chest pain, palpitations, and edema, Respiratory: Negative for shortness of breath, cough, wheezing, and pleuritic chest pain, : Negative for injury, bleeding, discharge, and swelling, MS/Extremity: Negative for injury and deformity, Skin: Negative for injury, rash, and discoloration, Neuro: Negative for headache, weakness, numbness, tingling, and seizure, Psych: Negative for depression, anxiety, suicide ideation, homicidal ideation, and hallucinations, Allergy/Immunology: Negative for hives, rash, and allergies, Endocrine: Negative for neck swelling, polydipsia, polyuria, polyphagia, and marked weight changes, Hematologic/Lymphatic: Negative for swollen nodes, abnormal bleeding, and unusual bruising. 12:34 Abdomen/GI: Positive for abdominal pain, of the right lower quadrant and left lower quadrant. 12:34 Back: Positive for decreased range of motion, flank pain, bilaterally. Exam: 12:34 Constitutional: This is a well developed, well nourished patient who is awake, alert, brandy and in no acute distress. Head/Face: Normocephalic, atraumatic. Eyes: Pupils equal round and reactive to light, extra-ocular motions intact. Lids and lashes normal. Conjunctiva and sclera are non-icteric and not injected. Cornea within normal limits. Periorbital areas with no swelling, redness, or edema. ENT: Nares patent. No nasal discharge, no septal abnormalities noted. Tympanic membranes are normal and external auditory canals are clear. Oropharynx with no redness, swelling, or masses, exudates, or evidence of obstruction, uvula midline. Mucous membranes moist. Neck: Trachea midline, no thyromegaly or masses palpated, and no cervical lymphadenopathy. Supple, full range of motion without nuchal rigidity, or vertebral point tenderness. No Meningismus. Chest/axilla: Normal chest wall appearance and motion. Nontender with no deformity. No lesions are appreciated. Cardiovascular: Regular rate and rhythm with a normal S1 and S2. No gallops, murmurs, or rubs. Normal PMI, no JVD. No pulse deficits. Respiratory: Lungs have equal breath sounds bilaterally, clear to auscultation and percussion. No rales, rhonchi or wheezes noted. No increased work of breathing, no retractions or nasal flaring. Back: No spinal tenderness. No costovertebral tenderness. Full range of motion. Skin: Warm, dry with normal turgor. Normal color with no rashes, no lesions, and no evidence of cellulitis. MS/ Extremity: Pulses equal, no cyanosis. Neurovascular intact. Full, normal range of motion. Neuro: Awake and alert, GCS 15, oriented to person, place, time, and situation. Cranial nerves II-XII grossly intact. Motor strength 5/5 in all extremities. Sensory grossly intact. Cerebellar exam normal. Normal gait. Psych: Awake, alert, with orientation to person, place and time. Behavior, mood, and affect are within normal limits. 12:34 Abdomen/GI: Inspection: abdomen appears normal, Bowel sounds: normal, Palpation: mild abdominal tenderness, in the posterior aspect of right lateral abdomen and posterior aspect of left lateral abdomen. 14:19 Musculoskeletal/extremity: DVT Exam: No signs of deep vein thrombosis. no pain, no brandy swelling, no tenderness, negative Homans' sign noted on exam, no appreciated bluish discoloration, no erythema, no increased warmth. Vital Signs: 11:53 BP 126 / 86; Pulse 86; Resp 16; Temp 97.8; Pulse Ox 97% on R/A; Weight 81.65 kg; Height iw 5 ft. 4 in. (162.56 cm); Pain 8/10; 13:00 BP 111 / 52; Pulse 70; Resp 16; Pulse Ox 100% on R/A; kr3 14:05 BP 110 / 65; Pulse 70; Resp 16; Pulse Ox 100% on R/A; kr3 15:00 BP 111 / 71; Pulse 65; Resp 16; Pulse Ox 100% on R/A; kr3 16:23 BP 114 / 78; Pulse 73; Resp 18; Pulse Ox 100% on R/A; kr3 11:53 Body Mass Index 30.90 (81.65 kg, 162.56 cm) iw MDM: 12:04 Patient medically screened. brandy 12:42 Differential diagnosis: diverticulitis, Dysmenorrhea. Data reviewed: vital signs, [facility] nurses notes, lab test result(s), EKG, radiologic studies, CT scan. 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 Test interpretation: by ED physician or midlevel provider:. Counseling: I had a detailed discussion with the patient and/or guardian regarding: the historical points, exam findings, and any diagnostic results supporting the discharge/admit diagnosis, lab results, radiology results, the need for outpatient follow up, for definitive care, a family practitioner, a general surgeon. 05/01 12:07 Order name: Urine Dipstick-Ancillary; Complete Time: 12:09 [facility] 05/01 12:11 Order name: CBC with Diff; Complete Time: 12:59 [facility] 05/01 12:11 Order name: CMP; Complete Time: 13:18 [facility] 05/01 12:11 Order name: Lipase; Complete Time: 13:18 [facility] 05/01 12:14 Order name: Urine Microscopic Only; Complete Time: 12:50 [facility] 05/01 12:11 Order name: CT Abd/Pelvis - IV Contrast Only; Complete Time: 14:19 [facility] 05/01 12:28 Order name: Urine Culture [facility] 05/01 12:06 Order name: Urine Dipstick-Ancillary (obtain specimen); Complete Time: 12:07 ph 05/01 12:06 Order name: Urine Test (obtain specimen); Complete Time: 12:07 ph 05/01 12:11 Order name: IV Saline Lock; Complete Time: 12:50 [facility] 05/01 12:11 Order name: Labs collected and sent; Complete Time: 12:50 [facility] Administered Medications: 12:31 Drug: Zofran (Ondansetron) 4 mg Route: IVP; Site: right antecubital; kr3 16:22 Follow up: Response: No adverse reaction kr3 12:35 Drug: morphine 4 mg Route: IVP; Infused Over: 4 mins; Site: right antecubital; kr3 16:23 Follow up: Response: No adverse reaction; RASS: Alert and Calm (0) kr3 12:40 Drug: NS 0.9% 1000 ml Route: IV; Rate: 1 bolus; Site: right antecubital; kr3 16:22 Follow up: Response: No adverse reaction; IV Status: Completed infusion; IV Intake: kr3 1000ml 12:59 Not Given (Duplicate Order): Rocephin (cefTRIAXone) 1 grams IV at per protocol once; brandy Given slow IV push per pharmacy instructions 13:25 Drug: Cipro (ciprofloxacin) 400 mg Volume: 200 ml; Route: IVPB; Infused Over: 60 mins; kr3 Site: right antecubital; 15:30 Follow up: Response: No adverse reaction; IV Status: Completed infusion; IV Intake: kr3 200ml 15:55 Drug: morphine 4 mg Route: IVP; Infused Over: 4 mins; Site: right antecubital; kr3 16:19 Follow up: Response: No adverse reaction; RASS: Alert and Calm (0) kr3 Disposition Summary: 05/01/22 14:19 Discharge Ordered Location: Home [facility] Problem: new brandy Symptoms: have improved brandy Condition: Stable brandy Diagnosis - Abdominal pain, unspecified brandy - Pelvic and perineal pain brandy - UTI/ Urinary tract infection, site not specified brandy Followup: brandy - With: Private Physician - When: 2 - 3 days - Reason: Recheck today's complaints, Continuance of care, Re-evaluation by your physician Discharge Instructions: - Discharge Summary Sheet brandy - Abdominal Pain, Adult brandy - Pelvic Pain, Female brandy - Pelvic Pain, Female, [id number] brandy - Endometriosis brandy - Urinary Tract Infection, Adult brandy - Urinary Tract Infection, Adult, [id number] [facility] Forms: - Medication Reconciliation Form [facility] - Thank You Letter [facility] - Antibiotic Education [facility] - Prescription Opioid Use [facility] Prescriptions: - Zofran 4 mg Oral Tablet - take 1 tablet by ORAL route every 12 hours As needed; 20 tablet; Refills: 0, [facility] Product Selection Permitted - dicyclomine 20 mg Oral Tablet - take 1 tablet by ORAL route 4 times per day; 28 tablet; Refills: 0, Product [facility] Selection Permitted - Cipro 250 mg Oral Tablet - take 1 tablet by ORAL route every 12 hours; 14 tablet; Refills: 0, Product [facility] Selection Permitted - Tramadol 50 mg Oral Tablet - take 2 tablet by ORAL route every 8 hours as needed; 26 tablet; Refills: 0, [facility] Product Selection Permitted Signatures: Dispatcher [employer] Krishna Bautista MD MD cha Williams, Irene RN XU Yue Bell RN RN Kenia Leal RN RN kr3
--- NOTE | 2022-05-01 14:20 | ER ---
Nurse's Notes [facility] Name: Becca Gomez Age: 42 yrs Sex: Female : 1980 Arrival Date: 05/01/2022 Time: 11:46 Bed 26 Private MD: Diagnosis: Abdominal pain, unspecified;Pelvic and perineal pain;UTI/ Urinary tract infection, site not specified Presentation: 05/01 11:53 Chief complaint: Patient states: I'm having lower abd and pelvic pain, and radiates to iw back and across , pain started Saturday, denies vaginal bleeding, denies , denies v/d, reports loss appetite , denies urinary s/s. Coronavirus screen: At this time, the client does not indicate any symptoms associated with coronavirus-19. Ebola Screen: Patient negative for fever greater than or equal to 101.5 degrees Fahrenheit, and additional compatible Ebola Virus Disease symptoms Patient denies exposure to infectious person. Patient denies travel to an Ebola-affected area in the 21 days before illness onset. No symptoms or risks identified at this time. Initial Sepsis Screen: Does the patient meet any 2 criteria? No. Patient's initial sepsis screen is negative. Does the patient have a suspected source of infection? No. Patient's initial sepsis screen is negative. Risk Assessment: Do you want to hurt yourself or someone else? Patient reports no desire to harm self or others. Onset of symptoms was April 29, 2022. 11:53 Method Of Arrival: Ambulatory iw 11:53 Acuity: LIZ 3 iw PILOT SUBMERSIBLE: 11:56 LMP N/A - control method iw Historical: - Allergies: 11:54 Codeine; iw 11:54 Fentanyl; iw 11:54 HYDROCODONE; iw 11:54 Macrobid; iw 11:54 Methadone; iw 11:54 NSAIDS (Hives); iw 11:54 okana; iw 11:54 PENICILLINS; iw 11:54 Rocephin; iw 11:54 Toradol; iw 11:54 Tylenol (Hives); iw 11:54 Zithromax; iw - PMHx: 11:54 Asthma; Diabetes - IDDM; Endometriosis of vagina; Familial Adenomatous Polyposis; iw Migraines; trigeminal neurolgia; - PSHx: 11:54 colon resection; Cholecystectomy; tubal ligation; iw - Immunization history:: Client reports having NOT received the Covid vaccine. - Social history:: Smoking status: Patient denies any tobacco usage or history of. - Family history:: not pertinent. Screenin:47 Abuse screen: Denies threats or abuse. Nutritional screening: No deficits noted. kr3 Tuberculosis screening: No symptoms or risk factors identified. Fall Risk IV access (20 points). Total Kee Fall Scale indicates No Risk (0-24 pts). Assessment: 12:14 General: General: Appears in no apparent distress. uncomfortable, Behavior is calm, kr3 cooperative, appropriate for age. 12:14 Pain: Complains of pain in abdomen Pain currently is 8 out of 10 on a pain scale. kr3 13:15 Reassessment: No changes from previously documented assessment. Patient and/or family kr3 updated on plan of care and expected duration. Pain level reassessed. Patient is alert, oriented x 3, equal unlabored respirations, skin warm/dry/pink. 14:15 Reassessment: No changes from previously documented assessment. Patient and/or family kr3 updated on plan of care and expected duration. Pain level reassessed. 15:10 General: Appears uncomfortable, Behavior is calm, cooperative, appropriate for age. kr3 Pain: Complains of pain in left upper quadrant, right lower quadrant and left lower quadrant Pain currently is 8 out of 10 on a pain scale. 15:10 GI: Bowel sounds present X 4 quads. kr3 16:21 GI: Abd is soft X 4 quads Abdomen is tender to palpation in right lower quadrant and kr3 left lower quadrant. Vital Signs: 11:53 BP 126 / 86; Pulse 86; Resp 16; Temp 97.8; Pulse Ox 97% on R/A; Weight 81.65 kg; Height iw 5 ft. 4 in. (162.56 cm); Pain 8/10; 13:00 BP 111 / 52; Pulse 70; Resp 16; Pulse Ox 100% on R/A; kr3 14:05 BP 110 / 65; Pulse 70; Resp 16; Pulse Ox 100% on R/A; kr3 15:00 BP 111 / 71; Pulse 65; Resp 16; Pulse Ox 100% on R/A; kr3 16:23 BP 114 / 78; Pulse 73; Resp 18; Pulse Ox 100% on R/A; kr3 11:53 Body Mass Index 30.90 (81.65 kg, 162.56 cm) iw ED Course: 11:46 Patient arrived in ED. mr 11:54 Triage completed. iw 11:56 Arm band placed on. iw 11:57 Patient placed in an exam room, on a stretcher. ll1 12:03 Kenia Leal, XU is Primary Nurse. kr3 12:04 Krishna Staples MD is Attending Physician. brandy 12:17 Urine Microscopic Only Sent. ll1 12:20 Missed attempt(s): 22 gauge in left antecubital area. kr3 12:25 Inserted saline lock: 22 gauge in right antecubital area, using aseptic technique. kr3 Blood collected. 13:42 CT Abd/Pelvis - IV Contrast Only In Process Unspecified. EDMS 16:20 No provider procedures requiring assistance completed. IV discontinued, intact, kr3 bleeding controlled, No redness/swelling at site. Pressure dressing applied. 16:21 Bed in low position. Call light in reach. Side rails up X 1. kr3 Administered Medications: 12:31 Drug: Zofran (Ondansetron) 4 mg Route: IVP; Site: right antecubital; kr3 16:22 Follow up: Response: No adverse reaction kr3 12:35 Drug: morphine 4 mg Route: IVP; Infused Over: 4 mins; Site: right antecubital; kr3 16:23 Follow up: Response: No adverse reaction; RASS: Alert and Calm (0) kr3 12:40 Drug: NS 0.9% 1000 ml Route: IV; Rate: 1 bolus; Site: right antecubital; kr3 16:22 Follow up: Response: No adverse reaction; IV Status: Completed infusion; IV Intake: kr3 1000ml 12:59 Not Given (Duplicate Order): Rocephin (cefTRIAXone) 1 grams IV at per protocol once; brandy Given slow IV push per pharmacy instructions 13:25 Drug: Cipro (ciprofloxacin) 400 mg Volume: 200 ml; Route: IVPB; Infused Over: 60 mins; kr3 Site: right antecubital; 15:30 Follow up: Response: No adverse reaction; IV Status: Completed infusion; IV Intake: kr3 200ml 15:55 Drug: morphine 4 mg Route: IVP; Infused Over: 4 mins; Site: right antecubital; kr3 16:19 Follow up: Response: No adverse reaction; RASS: Alert and Calm (0) kr3 Medication: 16:22 VIS not applicable for this client. kr3 Intake: 15:30 IV: 200ml; Total: 200ml. kr3 16:22 IV: 1000ml; Total: 1200ml. kr3 Outcome: 14:19 Discharge ordered by . brandy 16:21 Discharged to home ambulatory. kr3 16:21 Condition: stable 16:21 Discharge instructions given to patient, Instructed on discharge instructions, follow up and referral plans. medication usage, Demonstrated understanding of instructions, follow-up care, medications, Prescriptions given X 4. 16:24 Patient left the ED. kr3 Signatures: Dispatcher [employer] EDMS Krishna Staples MD MD cha Rivera, Lorene Nuno, RN Evaristo Torres RN RN ll1 Kenia Leal RN RN kr3 Corrections: (The following items were deleted from the chart) 12:07 12:06 GI: kr3 kr3 12:14 12:08 General: Appears in no apparent distress. uncomfortable, Behavior is calm, kr3 cooperative, appropriate for age, kr3 12:14 12:08 Pain: Complains of pain in abdomen and pelvis Pain currently is 8 out of 10 on a kr3 pain scale. kr3 12:14 12:08 GI: kr3 kr3 12:14 12:08 GI: Abdomen is flat, non-distended, kr3 kr3 12:15 12:14 General: kr3 kr3 12:48 12:48 Inserted saline lock: 22 gauge in right antecubital area, using aseptic kr3 technique. Blood collected. kr3
[2022-05-01 16:50] VITALS: TEMP 97.8
[2022-05-01 17:01] VITALS: O2SAT 100
[2022-05-01 17:13] VITALS: BP 114/78
== END 2022-05-01 16:24 | disposition home or self-care (01) ==
LOC: ER 11:42
DX: N39.0 Urinary tract infection, site not specified (principal); R10.30 Lower abdominal pain, unspecified; E11.9 Type 2 diabetes mellitus without complications; Z88.0 Allergy status to penicillin; Z88.1 Allergy status to other antibiotic agents; Z88.5 Allergy status to narcotic agent; Z88.6 Allergy status to analgesic agent; Z88.8 Allergy status to other drugs, medicaments and biological substances
CPT/HCPCS: 87088; 85025; 87086; 36415; 83690; 80053; 74177; Q9967; J7030; J2405; J0744; 81003; 81015